=== PATIENT | male | born 1965 | race Caucasian/White ===

== ENCOUNTER → 2017-11-16 10:34 | Outpatient (CLI) | payer MEDICAID, SELFPAY ==
--- NOTE | 2017-11-16 10:41 | RAD_ITS ---
STUDY: X-RAY - THORACIC SPINE REASON FOR EXAM: Male, 52 years old. Pain TECHNIQUE: 7 view(s) of the thoracic spine were obtained. COMPARISON: None. FINDINGS: There is no evidence of fracture or dislocation in the thoracic spine. There are mild degenerative changes. There is no evidence of subluxation on flexion or extension. RAD/Thoracic Spine 3 Views IMPRESSION: No fracture or dislocation in the thoracic spine. Mild degenerative changes. Electronically Signed: David Aquino, at 20:07 EDT Tel , Service support ,
== END ==
PROVIDERS: Family Provider Family Medicine; PCP Family Medicine; Visit Provider Anesthesiology Pain Medicine
DX: M54.6 Pain in thoracic spine (principal)
CPT/HCPCS: 72072

== ENCOUNTER 2018-06-21 09:44 | Day surgery (SDC) | payer MEDICAID, SELFPAY ==
[2018-06-21 10:02] VITALS: BP 121/91; PULSE 71; RESP 16; TEMP 36.8; O2SAT 100; BMI 20.9
--- NOTE | 2018-06-21 11:10 | RAD_ITS ---
STUDY: RIGHT SI JOINT INJECTION. REASON FOR EXAM: Male, 52 years old. Right lower back pain. FLUOROSCOPY TIME (if supplied): (0:14) minutes/seconds. Single AP view was submitted. TECHNIQUE: Intraoperative fluoroscopic services provided for right SI joint injection. COMPARISON: None. FINDINGS: The spinal needle is seen overlying the right SI joint RAD/Fluoro Guided Needle Placement IMPRESSION: Fluoroscopic services provided for right SI joint injection. Electronically Signed: Bogdan Ludwig MD at 16:04 EST Tel [phone], Service support ,
[2018-06-21] MEDS: Bupivacaine 0.25% 30 ML Vial (11:11)
[2018-06-21] MEDS: MethylPREDNISolone Acetate 80 MG/ML Vial (11:11)
[2018-06-21 11:18] VITALS: BP 111/83; BP 121/91; PULSE 66; RESP 17; TEMP 36.6; O2SAT 97
[2018-06-21 11:23] VITALS: BP 111/81; BP 121/91; PULSE 68; RESP 16; O2SAT 97
--- NOTE | 2018-06-21 11:24 | PCM.OPRPT ---
Problem List (1) Sacrococcygeal disorders, not elsewhere classified Status: Chronic (2) Sacroiliitis, not elsewhere classified Status: Chronic Report of Operation Date of Procedure: 06/21/18 Pre-Operative Diagnosis: Sacroiliitis, sacroiliac joint dysfunction Post-Operative Diagnosis: Sacroiliitis, sacroiliac joint dysfunction Surgery/Procedure Performed:: Right sided sacroiliac joint steroid injection under fluoroscopic guidance Description of Surgical Findings:: PROCEDURE: Right-sided sacroiliac joint injection under fluoroscopic guidance PREOPERATIVE DIAGNOSIS: Sacroiliitis, sacroiliac joint dysfunction POSTOPERATIVE DIAGNOSIS: Sacroiliitis, sacroiliac joint dysfunction ANESTHESIA: MAC COMPLICATIONS: None BLOOD LOSS: Minimal PROCEDURE IN DETAIL: History and physical today was reviewed. Risks and benefits of the procedure were explained. The patient understood, agreed to our procedure, and informed consent was obtained. IV inserted per routine protocol. The patient was taken to the operating room, placed in a prone position with a pillow positioned underneath the abdomen. The right side of his lower back and buttock area was prepped and draped in a sterile fashion using iodine x3. Under fluoroscopy guidance, on AP view, the right SI joint was visualized the skin and subcutaneous tissue and size approximately 3 cc of 1% lidocaine using a 25-gauge regular needle under direct visualization with fluoroscopy at approximately 25 degree angle using a 22-gauge 3-1/2 inch spinal needle the needle was advanced via the skin the tip of the needle's maneuver and directed towards the inferior one third of the posterior SI joint once the tip of the needle was at the vicinity of the joint after negative aspiration for blood or CSF a total of 3 cc of contrast were injected to confirm correct placement of the needle as well as cephalocaudad spread the confirmation was obtained on AP as well as oblique view after repeated negative aspiration and confirmation a total of 4 cc of preservative-free 0.25% Marcaine with 40 mg of Depo-Medrol were injected in and around the SI joint. The needles were then removed intact. The patient experienced no signs or symptoms intrathecal, intravascular injection. The patient experienced no paraesthesia. The procedure was completed without any apparent difficult, any complication. The patient appeared to tolerate well. ASSESSMENT AND PLAN: This is a 52-year-old male with sacroiliitis, sacroiliac joint dysfunction status post right-sided sacroiliac joint steroid injection under fluoroscopic guidance. The patient will continue his current medications. The patient will follow in approximately 2 weeks for possible repeat of the procedure if indicated.
[2018-06-21 11:28] VITALS: BP 112/82; BP 121/91; PULSE 61; RESP 17; O2SAT 99
[2018-06-21 11:32] VITALS: BP 107/81; BP 121/91; PULSE 62; RESP 16; TEMP 36.6; O2SAT 94
[2018-06-21 11:49] VITALS: BP 121/91
--- OUTSIDE RECORDS SUMMARY | 2018-09-22 22:02 | XMS RPT_ITS ---
:1965 Author Organization OHIP Care Team Providers Name Role Phone ALISON CROFT) Referring Unavailable ALISON CROFT) Attending Unavailable ALISON CROFT) Referring Unavailable HEIKE CARVAJAL (GIL) Attending Unavailable ALISON CROFT) Referring Unavailable ALISON CROFT) Attending Unavailable Ryan Valdivia Attending Unavailable Ryan Valdivia Referring Unavailable John Croft Primary Care Unavailable Ryan Valdivia Attending Unavailable Ryan Valdivia Referring Unavailable John Croft Primary Care Unavailable PROBLEMS PROBLEMS DATE TYPE CONDITION / CODE ATTENDING STATUS SOURCE 03/17/2018 Active Encounter for NA Active [facility] general adult [facility] [place] medical Repository examination without abnormal findings / Z00.00(ICD-10) 03/17/2018 Active Emphysema, NA Active [facility] unspecified / [facility] [place] J43.9(ICD-10) Repository 12/18/2017 Unknown M54.6 - Pain in [facility], [facility] thoracic spine / [facility] M54.6(ICD-10) Hospital Repository PROCEDURES PROCEDURES No Procedure Records FoundRESULTS RESULTS OPERATIVE REPORT Observed: 06/21/2018 Status: F Source: [place] 11:37 [facility] [facility] Medical Records Department [address] [place] [address] [place] [address] Operative Report 06/21/18 1124 MR#: [id number] Acct: [id number] Name: LOLIS LUCAS Rep #: [id number] : 1965 52 From: Ryan Valdivia MD PCP: John Croft MD Status: [facility] Y Location: [place] [address] Problem List (1) Sacrococcygeal disorders, not elsewhere classified Status: Chronic (2) Sacroiliitis, not elsewhere classified Status: Chronic Report of Operation Date of Procedure: 06/21/18 Pre-Operative Diagnosis: Sacroiliitis, sacroiliac joint dysfunction Post-Operative Diagnosis: Sacroiliitis, sacroiliac joint dysfunction Surgery/Procedure Performed:: Right sided sacroiliac joint steroid injection under fluoroscopic guidance Description of Surgical Findings:: PROCEDURE: Right-sided sacroiliac joint injection under fluoroscopic guidance PREOPERATIVE DIAGNOSIS: Sacroiliitis, sacroiliac joint dysfunction POSTOPERATIVE DIAGNOSIS: Sacroiliitis, sacroiliac joint dysfunction ANESTHESIA: MAC COMPLICATIONS: None BLOOD LOSS: Minimal PROCEDURE IN DETAIL: History and physical today was reviewed. Risks and benefits of the procedure were explained. The patient understood, agreed to our procedure, and informed consent was obtained. IV inserted per routine protocol. The patient was taken to the operating room, placed in a prone position with a pillow positioned underneath the abdomen. The right side of his lower back and buttock area was prepped and draped in a sterile fashion using iodine x3. Under fluoroscopy guidance, on AP view, the right SI joint was visualized the skin and subcutaneous tissue and size approximately 3 cc of 1% lidocaine using a 25-gauge regular needle under direct visualization with fluoroscopy at approximately 25 degree angle using a 22-gauge 3-1/2 inch spinal needle the needle was advanced via the skin the tip of the needle's maneuver and directed towards the inferior one third of the posterior SI joint once the tip of the needle was at the vicinity of the joint after negative aspiration for blood or CSF a total of 3 cc of contrast were injected to confirm correct placement of the needle as well as cephalocaudad spread the confirmation was obtained on AP as well as oblique view after repeated negative aspiration and confirmation a total of 4 cc of preservative- free 0.25% Marcaine with 40 mg of Depo-Medrol were injected in and around the SI joint. The needles were then removed intact. The patient experienced no signs or symptoms intrathecal, intravascular injection. The patient experienced no paraesthesia. The procedure was completed without any apparent difficult, any complication. The patient appeared to tolerate well. ASSESSMENT AND PLAN: This is a 52-year-old male with sacroiliitis, sacroiliac joint dysfunction status post right-sided sacroiliac joint steroid injection under fluoroscopic guidance. The patient will continue his current medications. The patient will follow in approximately 2 weeks for possible repeat of the procedure if indicated. 06/21/18 1137 <Electronically signed by Ryan Valdivia MD> Date Ryan Valdivia MD CC: John Croft MD; Ryan Valdivia Signed FLUORO GUIDED NEEDLE Observed: 06/21/2018 Status: F Source: [place] 3:46 AM [facility] REPOSITORY [facility] Imaging Services [address] [place] [address] [place] [address] Fluoro Guided Needle Placement MR#: [id number] Acct: [id number] Name: LOLIS LUCAS Jr. Rep #: [id number] : 1965 M 52 From: Bogdan Ludwig MD PCP: John Croft MD Status: [facility] Study: Fluoro Guided Needle Placement Date of Exam: 06/21/18 Exam# [id number] Ordering Dr: Ryan Valdivia MD STUDY: RIGHT SI JOINT INJECTION. REASON FOR EXAM: Male, 52 years old. Right lower back pain. FLUOROSCOPY TIME (if supplied): (0:14) minutes/seconds. Single AP view was submitted. TECHNIQUE: Intraoperative fluoroscopic services provided for right SI joint injection. COMPARISON: None. FINDINGS: The spinal needle is seen overlying the right SI joint RAD/Fluoro Guided Needle Placement IMPRESSION: Fluoroscopic services provided for right SI joint injection. Electronically Signed: Bogdan Ludwig MD at 16:04 EST Tel [phone], Service support , CC: John Croft MD; Ryan Valdivia Sharebroker: Signed CBC AND DIFFERENTIAL Collected: 03/17/2018 Status: F Source: [place] 10:32 AM [facility] REPOSITORY TYPE CODE TESTS RESULT OUT OF REFERENCE UNITS RANGE LAB WBC 3.70-11.00 k/uL WBC High 11.78 LAB RBC 4.20-6.00 m/uL RBC 5.07 LAB HGB 13.0-17.0 g/dL Hemoglobin 16.0 LAB HCT 39.0-51.0 % Hematocrit 48.6 LAB MCV 80.0-100.0 fL MCV 95.9 LAB MCH 26.0-34.0 pG MCH 31.6 LAB MCHC 30.5-36.0 g/dL MCHC 32.9 LAB RDWCV 11.5-15.0 % RDW-CV 14.4 LAB PLTCT 150-400 k/uL Platelet Count 342 LAB MPV 9.0-12.7 fL MPV 10.3 LAB ANEUT % Neut% 74.5 LAB AANEUT 1.45-7.50 k/uL Abs Neut High 8.77 LAB ALYMP % Lymph% 17.6 LAB AALYMP 1.00-4.00 k/uL Abs Lymph 2.07 LAB AMONO % [place]% 7.1 LAB AAMONO <0.87 k/uL Abs [place] 0.84 LAB AEOS % Eosin% 0.4 LAB AAEOS <0.46 k/uL Abs Eosin 0.05 LAB ABASO % Baso% 0.4 LAB AABASO <0.11 k/uL Abs Baso 0.05 LAB AUNRBC 0 /100 WBC NRBCs 0.0 LAB ABNRBC <0.01 k/uL Absolute nRBC <0.01 LAB DTYP DTYPE Auto Diff Performed By: #### CBCDIF, CMP, LIPB #### [facility] [address] [place], [place] [address] COMP METABOLIC PANEL Collected: 03/17/2018 Status: F Source: [place] 10:32 AM [facility] REPOSITORY TYPE CODE TESTS RESULT OUT OF REFERENCE UNITS RANGE LAB TP 6.3-8.0 g/dL Protein, Total 7.3 LAB ALB 3.9-4.9 g/dL Albumin 4.5 LAB CA 8.5-10.2 mg/dL Calcium, Total 9.6 LAB TBIL 0.2-1.3 mg/dL Bilirubin, Total 0.2 LAB ALKP 36-108 U/L Alkaline Phosphatase 99 LAB AST 14-40 U/L AST 17 LAB GLU 74-99 mg/dL Low Glucose 69 Result Comment: The [place] Diabetes Association (ADA) provides guidance for cutoff values for fasting glucose and random glucose. The ADA defines fasting as no caloric intake for at least 8 hours. Fas ting plasma glucose results between 100 to 125 mg/dL indicate increased risk for diabetes (prediabetes). Fasting plasma glucose results greater than or equal to 126 mg/dL meet the criteria for diagnosis of diabetes. In the absence of unequivocal hyperglycemia, results should be confirmed by repeat testing. In a patient with classic symptoms of hyperglycemia or hyperglycemic crisis, random plasma glucose results greater than or equal to 200 mg/dL meet the criteria for diagnosis of diabetes. Reference: Standards of Medical Care in Diabetes 2016, [place] [employer] Association. Diabetes Care. 2016.39(Suppl 1). LAB BUN 9-24 mg/dL BUN 16 LAB CRET 0.73-1.22 mg/dL Creatinine 0.99 LAB NA 136-144 mmol/L Sodium 140 LAB K 3.7-5.1 mmol/L Potassium 4.4 LAB CL 97-105 mmol/L Chloride 102 LAB CO2 22-30 mmol/L CO2 23 LAB AGAP 9-18 mmol/L Anion Gap 15 LAB ALT 10-54 U/L ALT 13 LAB GFRAA eGFR- Amer. >60 LAB GFRNAA . eGFR-All Other Races >60 Result Comment: eGFR (Estimated GFR) Units of measure: mL/min/1.73 meters squared eGFR is derived from the reexpressed MDRD Study equation using the following parameters: serum creatinine, age, gender and race. The creatinine assay has been calibrated to be traceable to IDMS. An eGFR <60 mL/min/1.73m2 for >3 months is consistent with chronic kidney disease. Refer to KDOQI guidelines for clinical interpretation. In patients with unstable renal function, e.g. those with acute kidney injury, the eGFR may not accurately reflect actual GFR. Performed By: #### CBCDIF, CMP, LIPB #### [facility] [address] [place], [place] [address] LIPID PANEL, BASIC Collected: 03/17/2018 Status: F Source: [place] 10:32 AM [facility] [place] REPOSITORY TYPE CODE TESTS RESULT OUT OF REFERENCE UNITS RANGE LAB CHOL <200 mg/dL Cholesterol High 232 Result Comment: <200 mg/dL, Desirable 200-239 mg/dL, Borderline high >239 mg/dL, High LAB TRIGLY <150 mg/dL Triglyceride High 159 Result Comment: <150 mg/dL, Normal 150-199 mg/dL, Borderline high 200-499 mg/dL, High >499 mg/dL, Very high LAB HDL >39 mg/dL HDL-Cholesterol Low 32 Result Comment: 40-59 mg/dL, Acceptable >59 mg/dL, High: Negative risk factor for coronary heart disease <40 mg/dL, Low: Positive risk factor for coronary heart disease LAB LDL <100 mg/dL LDL-Cholesterol High 168 Result Comment: <100 mg/dL, Optimal 100-129 mg/dL, Near optimal/above optimal 130-159 mg/dL, Borderline high 160-189 mg/dL, High >189 mg/dL, Very high Secondary prevention optimal LDL Cholesterol levels are recommended to be < 70 mg/dL LAB NONHDL <130 mg/dL Non HDL High Cholesterol 200 Result Comment: <130 mg/dL, Optimal 130-159 mg/dL, Near optimal/above optimal 160-189 mg/dL, Borderline high 190-219 mg/dL, High >219 mg/dL, Very high Secondary prevention optimal non HDL Cholesterol levels are recommended to be < 100 mg/dL LAB FT hrs Fasting Time 12 LAB VLDL <30 mg/dL High VLDL Cholesterol 32 LAB TCHDL <5.10 High TC:HDL Ratio 7.25 LAB LDLHDL <2.54 High LDL:HDL Ratio 5.25 Result Comment: Reference: 1. National Cholesterol Education Program ATP III Guideline At-A-Glance Quick Desk Reference: National Heart, Lung, and Blood Dupo. National Institutes of Health. 2001: NIH Publication No. 01-3305. 2. An International Atherosclerosis Society position paper: global recommendations for the management of dyslipidemia: executive summary, Atherosclerosis. 2014: 232(2):410-413. Performed By: #### CBCDIF, CMP, LIPB #### [facility] [address] [place], [place] [address] URINALYSIS WITH Collected: 03/17/2018 Status: F Source: [place] MICROSCOPIC 10:32 AM [facility] REPOSITORY TYPE CODE TESTS RESULT OUT OF REFERENCE UNITS RANGE LAB UCOL Yellow Color Yellow LAB [facility] Clear Clarity Clear LAB UGLUC Negative mg/dL Glucose, Urine Negative LAB UBIL Negative Bilirubin, Urine Negative LAB UKET Negative Ketones, Urine Negative LAB USPG 1.005-1.030 Specific Christopher, Ur 1.009 LAB UHGB Negative Hemoglobin/Blood, Negative Ur LAB UPH 4.5-8.0 pH 6.0 LAB UPROT Negative mg/dL Protein, Urine Negative LAB UUROB Normal Urobilinogen Normal LAB UNITR Negative Nitrites Negative LAB ULKEST Negative Leukest Negative LAB UCOM Comments SEE COMMENT Result Comment: N/A LAB UMCOM Urine SEE Adan Comment COMMENT Result Comment: N/A LAB UWBC 0-5 /HPF WBC 0-5 LAB URBC 0-3 /HPF RBC 0-3 Performed By: #### UAWMIC #### [facility] [address] [place], [place] [address] PROGRESS Observed: 03/17/2018 Status: COMPLETED Source: [place] 9:48 AM [facility] REPOSITORY HNO ID: [id number] Author: Alison Sanders) [place] Service: (none) Author Type: Physician Type: Progress Notes Filed: 03/17/2018 10:23 AM Note Text: Chief Complaint Patient presents with: 6 Month Exam HPI Lolis Lucas is a 52 year old male who presents here today for 6 month follow up. Complaining today of right flank pain which started 1 week ago along with dark colored urine. Described as deep/sharp which is exacerbated with taking deep breath. Unchanged with movement or rest. Not treating with anything OTC. Has been taking baclofen OTC for DDD history which has not changed symptoms. Denies pain with urination, hematuria, urinary frequency/urgency, stopping/starting, straining to urinate, recent injury to area. Following up with Dr. Chester or history of DDD and next OV is 03/29. On nabumetone and baclofen which helps somewhat with pain. Also has TENs unit at home which he uses daily. Patient tried patches for smoking cessation which did not work for symptoms. Smoking 1/2 pack per day at this. Not interested in wellbutrin or chantix at this time. Emphysema symptoms have worsened since last OV on Spiriva and abluterol. States he is getting up nightly with coughing, more frequent SOB/wheezing, SOB with exertion, increased use of albuterol. Refusing flu vaccine today. Due for screening blood work. Last tetanus shot in the last 5 years. Did not get colonoscopy done in last 6 months as recommended. Would like FOBT instead. Past medical history, appointments, medications, allergies reviewed. Previous Medical History PAST MEDICAL HISTORY Diagnosis Date - DDD (degenerative disc disease), cervical - DDD (degenerative disc disease), lumbar seeing Dr. Chester - DDD (degenerative disc disease), thoracic - Emphysema lung (HCC) - Seasonal allergies - Tinnitus - Tobacco use Previous Surgical History PAST SURGICAL HISTORY Procedure Laterality Date - PAST SURGICAL HISTORY OF dental extraction, full - VASECTOMY 1988 Family History FAMILY HISTORY Problem Relation Age of Onset - Heart Father CABG x3 - Hyperlipidemia Father - Stroke Paternal Grandfather Patient Allergies ALLERGIES Allergen Reactions - Bactrim [Sulfametho* Anaphylaxis - Clindamycin Diarrhea, Vomiting - Wellbutrin [Bupropi* Hives Current Medications Current Outpatient Prescriptions on File Prior to Visit: baclofen (LIORESAL) 10 mg tablet Take 10 mg by mouth three times daily. cetirizine (ZYRTEC) 10 mg tablet Take 1 tablet by mouth once daily. tiotropium bromide (SPIRIVA RESPIMAT) 1.25 mcg/actuation mist Inhale 2 Puffs as instructed twice daily. albuterol HFA (VENTOLIN HFA) 90 mcg/actuation inhaler Inhale 2 Puffs as instructed every 4 hours as needed for Wheezing/Shortness of Breath. ibuprofen (MOTRIN) 600 mg tablet Take 1 tablet by mouth every 6 hours as needed. nicotine (NICODERM) 21 mg/24 hr Apply 1 Patch as directed every 24 hours. nicotine (NICODERM) 14 mg/24 hr Apply 1 Patch as directed every 24 hours. No smoking with patch. nicotine (NICODERM) 7 mg/24 hr Apply 1 Patch as directed every 24 hours. No current facility-administered medications on file prior to visit. Social History Social History Marital status: Spouse name: Years of education: Number of children: Occupational History Occupation Employer Comment unemployed Social History Main Topics Smoking status: Current Every Day Smoker Packs/day: 1.00 Years: 30.00 Types: Cigarettes Smokeless tobacco: Never Used Alcohol use: No Drug use: No Sexual activity: Not Currently Partners with: Female Review of Symptoms REVIEW OF SYSTEMS GENERAL: No weight loss, malaise or fevers RESPIRATORY: See HPI CARDIOVASCULAR: Negative for chest pain, leg swelling, hypertension, CHF or palpitations GI: No nausea, vomiting, or diarrhea SKIN: Negative for lesions, rash, and itching EXAM: BP 104/74 Pulse 78 Resp 20 Wt 66.7 kg (147 lb) BMI 22.35 kg/m? General Appearance: Well appearing, alert, in no acute distress, well-hydrated, well nourished.. Skin: Skin color, texture, turgor normal, no suspicious rashes or lesions. Lungs: Negative findings: normal respiratory rate and rhythm and chest symmetric with normal A/P diameter, Positive findings: scattered wheezing bilaterally. Heart: RRR without murmur, gallop, or rubs. No ectopy. Abdomen: Normal abdominal exam, Abdomen soft, non-tender. Bowel sounds normal. No masses, organomegaly. No CVA TTP. Extremities: No deformities, edema, skin discoloration, clubbing or cyanosis. Good capillary refill. . Back: no TTP over right flank, no swelling, rash, or bruising. Normal ROM. Health Maintenance List DTAP,TDAP,TD(1 - Tdap) due on 1985 LIPID SCREEN due on 2001 DIABETES SCREEN due on 2011 COLORECTAL CANCER SCREENING,SEE MODIFIER due on 2016 INFLUENZA(1) due on 03/06/2018 ONE PNEUMOVAX PRIOR TO AGE 66 Completed ASSESSMENT/PLAN: 1. General medical exam - ICD9: V70.9, ICD10: Z00.00 (primary diagnosis) - Recommended regular aerobic exercise. - Check CMP and fasting lipid panel - Vaccination(s) recommended today: Influenza - Follow up for annual exam in one year. - COMP METABOLIC PANEL - LIPID PANEL BASIC 2. Pulmonary emphysema, unspecified emphysema type (HCC) - ICD9: 492.8, ICD10: J43.9 Worsening symptoms. Add Breo, check PFTs. Consider referral to pulmonology if severe. - SPIROMETRY - BASELINE AND POST DILATOR - CBC + DIFF - FLUTICASONE 100 MCG-VILANTEROL 25 MCG/DOSE POWDER FOR INHALATION 3. Screening for colon cancer - ICD9: V76.51, ICD10: Z12.11 Refusing colonoscopy, will check FOBT instead. - FECAL OCCULT BLOOD TEST 4. Right flank pain - ICD9: 789.09, ICD10: R10.9 Obtain UA, If positive for blood will check CT abd/pelvis to rule out kidney stone. Suspect musculoskeletal vs radicular pain from DDD. - URINALYSIS WITH MICROSCOPIC 5. Dark urine - ICD9: 791.9, ICD10: R82.99 Check UA and CMP. Will call with results. Push PO fluids. - URINALYSIS WITH MICROSCOPIC 6. Tobacco use - ICD9: 305.1, ICD10: Z72.0 - Cessation encouraged. - Physiologic and physical aspects of tobacco addiction as well as strategies for quitting were discussed. - Counseling was given focusing on the harmful effects of this addiction especially given the patient's medical condition(s) which will be worsened because of the chemicals in tobacco. Alison Croft MD CNOV Observed: 03/17/2018 Status: COMPLETED Source: [place] 9:40 AM [facility] REPOSITORY Office Visit (FAMPWS) LANCELOLIS Alfred ([id number]) 1965 M Date Time Provider Department 03/17/18 9:40 AM ALISON CROFT) FAMPWS During your visit today, we recorded the following information about you: Pulse Respiration Blood pressure Weight 78/minute 20/minute 104/74 66.7 kg Alison Croft MD 03/17/2018 10:23 AM Signed Chief Complaint Patient presents with: 6 Month Exam HPI Lolis Lucas is a 52 year old male who presents here today for 6 month follow up. Complaining today of right flank pain which started 1 week ago along with dark colored urine. Described as deep/sharp which is exacerbated with taking deep breath. Unchanged with movement or rest. Not treating with anything OTC. Has been taking baclofen OTC for DDD history which has not changed symptoms. Denies pain with urination, hematuria, urinary frequency/urgency, stopping/starting, straining to urinate, recent injury to area. Following up with Dr. Chester or history of DDD and next OV is 03/29. On nabumetone and baclofen which helps somewhat with pain. Also has TENs unit at home which he uses daily. Patient tried patches for smoking cessation which did not work for symptoms. Smoking 1/2 pack per day at this. Not interested in wellbutrin or chantix at this time. Emphysema symptoms have worsened since last OV on Spiriva and abluterol. States he is getting up nightly with coughing, more frequent SOB/wheezing, SOB with exertion, increased use of albuterol. Refusing flu vaccine today. Due for screening blood work. Last tetanus shot in the last 5 years. Did not get colonoscopy done in last 6 months as recommended. Would like FOBT instead. Past medical history, appointments, medications, allergies reviewed. Previous Medical History PAST MEDICAL HISTORY Diagnosis Date - DDD (degenerative disc disease), cervical - DDD (degenerative disc disease), lumbar seeing Dr. Chester - DDD (degenerative disc disease), thoracic - Emphysema lung (HCC) - Seasonal allergies - Tinnitus - Tobacco use Previous Surgical History PAST SURGICAL HISTORY Procedure Laterality Date - PAST SURGICAL HISTORY OF dental extraction, full - VASECTOMY 1988 Family History FAMILY HISTORY Problem Relation Age of Onset - Heart Father CABG x3 - Hyperlipidemia Father - Stroke Paternal Grandfather Patient Allergies ALLERGIES Allergen Reactions - Bactrim [Sulfametho* Anaphylaxis - Clindamycin Diarrhea, Vomiting - Wellbutrin [Bupropi* Hives Current Medications Current Outpatient Prescriptions on File Prior to Visit: baclofen (LIORESAL) 10 mg tablet Take 10 mg by mouth three times daily. cetirizine (ZYRTEC) 10 mg tablet Take 1 tablet by mouth once daily. tiotropium bromide (SPIRIVA RESPIMAT) 1.25 mcg/actuation mist Inhale 2 Puffs as instructed twice daily. albuterol HFA (VENTOLIN HFA) 90 mcg/actuation inhaler Inhale 2 Puffs as instructed every 4 hours as needed for Wheezing/Shortness of Breath. ibuprofen (MOTRIN) 600 mg tablet Take 1 tablet by mouth every 6 hours as needed. nicotine (NICODERM) 21 mg/24 hr Apply 1 Patch as directed every 24 hours. nicotine (NICODERM) 14 mg/24 hr Apply 1 Patch as directed every 24 hours. No smoking with patch. nicotine (NICODERM) 7 mg/24 hr Apply 1 Patch as directed every 24 hours. No current facility-administered medications on file prior to visit. Social History Social History Marital status: Spouse name: Years of education: Number of children: Occupational History Occupation Employer Comment unemployed Social History Main Topics Smoking status: Current Every Day Smoker Packs/day: 1.00 Years: 30.00 Types: Cigarettes Smokeless tobacco: Never Used Alcohol use: No Drug use: No Sexual activity: Not Currently Partners with: Female Review of Symptoms REVIEW OF SYSTEMS GENERAL: No weight loss, malaise or fevers RESPIRATORY: See HPI CARDIOVASCULAR: Negative for chest pain, leg swelling, hypertension, CHF or palpitations GI: No nausea, vomiting, or diarrhea SKIN: Negative for lesions, rash, and itching EXAM: BP 104/74 Pulse 78 Resp 20 Wt 66.7 kg (147 lb) BMI 22.35 kg/m? General Appearance: Well appearing, alert, in no acute distress, well-hydrated, well nourished.. Skin: Skin color, texture, turgor normal, no suspicious rashes or lesions. Lungs: Negative findings: normal respiratory rate and rhythm and chest symmetric with normal A/P diameter, Positive findings: scattered wheezing bilaterally. Heart: RRR without murmur, gallop, or rubs. No ectopy. Abdomen: Normal abdominal exam, Abdomen soft, non-tender. Bowel sounds normal. No masses, organomegaly. No CVA TTP. Extremities: No deformities, edema, skin discoloration, clubbing or cyanosis. Good capillary refill. . Back: no TTP over right flank, no swelling, rash, or bruising. Normal ROM. Health Maintenance List DTAP,TDAP,TD(1 - Tdap) due on 1985 LIPID SCREEN due on 2001 DIABETES SCREEN due on 2011 COLORECTAL CANCER SCREENING,SEE MODIFIER due on 2016 INFLUENZA(1) due on 03/06/2018 ONE PNEUMOVAX PRIOR TO AGE 66 Completed ASSESSMENT/PLAN: 1. General medical exam - ICD9: V70.9, ICD10: Z00.00 (primary diagnosis) - Recommended regular aerobic exercise. - Check CMP and fasting lipid panel - Vaccination(s) recommended today: Influenza - Follow up for annual exam in one year. - COMP METABOLIC PANEL - LIPID PANEL BASIC 2. Pulmonary emphysema, unspecified emphysema type (HCC) - ICD9: 492.8, ICD10: J43.9 Worsening symptoms. Add Breo, check PFTs. Consider referral to pulmonology if severe. - SPIROMETRY - BASELINE AND POST DILATOR - CBC + DIFF - FLUTICASONE 100 MCG-VILANTEROL 25 MCG/DOSE POWDER FOR INHALATION 3. Screening for colon cancer - ICD9: V76.51, ICD10: Z12.11 Refusing colonoscopy, will check FOBT instead. - FECAL OCCULT BLOOD TEST 4. Right flank pain - ICD9: 789.09, ICD10: R10.9 Obtain UA, If positive for blood will check CT abd/pelvis to rule out kidney stone. Suspect musculoskeletal vs radicular pain from DDD. - URINALYSIS WITH MICROSCOPIC 5. Dark urine - ICD9: 791.9, ICD10: R82.99 Check UA and CMP. Will call with results. Push PO fluids. - URINALYSIS WITH MICROSCOPIC 6. Tobacco use - ICD9: 305.1, ICD10: Z72.0 - Cessation encouraged. - Physiologic and physical aspects of tobacco addiction as well as strategies for quitting were discussed. - Counseling was given focusing on the harmful effects of this addiction especially given the patient's medical condition(s) which will be worsened because of the chemicals in tobacco. Alison Croft MD Referring Provider: ALISON CROFT) [[id number]] Allergies As of Date: 03/17/2018 Noted Allergy Reaction BACTRIM (SULFAMETHOXAZOLE-TRIMETH*09/14/2017 10 - Anaphylaxis CLINDAMYCIN 09/14/2017 6 - Diarrhea 11 - Vomiting WELLBUTRIN (BUPROPION HCL) 09/14/2017 4 - Hives Date Reviewed: 03/17/2018 Reviewed by: Neil Castañeda Ma - Fully Assessed Reason for Visit: 6 Month Exam [189] Primary Visit Diagnosis:General medical exam [Z00.00] Other Visit Diagnoses:Pulmonary emphysema, unspecified emphysema type (HCC) [J43.9] Screening for colon cancer [Z12.11] Right flank pain [R10.9] Dark urine [R82.99] Tobacco use [Z72.0] Order(s):COMP METABOLIC PANEL [SQCMP] Order #: [id number] FUTURE LIPID PANEL BASIC [SQLIPB] Order #: [id number] FUTURE FECAL OCCULT BLOOD TEST [SQIFOBT] Order #: [id number] FUTURE URINALYSIS WITH MICROSCOPIC [SQUAWMIC] Order #: [id number] SPIROMETRY - BASELINE AND POST DILATOR [7603177] Order #: [id number] FUTURE CBC + DIFF [SQCBCDIF] Order #: [id number] FUTURE fluticasone-vilanterol (BREO ELLIPTA) 100-25 mcg/dose inhalerInhale 1 Inhalation as instructed once daily.Disp: 1 EachRfl: 5 Prescriptions as of 03/17/2018 Sig: NABUMETONE 500 MG TABLET Take 500 mg by mouth twice da* BACLOFEN 10 MG TABLET Take 10 mg by mouth three dominic* CETIRIZINE 10 MG TABLET Take 1 tablet by mouth once d* TIOTROPIUM BROMIDE 1.25 MCG/A* Inhale 2 Puffs as instructed * ALBUTEROL SULFATE HFA 90 MCG/* Inhale 2 Puffs as instructed * FLUTICASONE 100 MCG-VILANTERO* Inhale 1 Inhalation as instru* Problem List As Of Date 03/17/2018 Noted Resolved Tobacco use [Z72.0] Emphysema lung (HCC) [J43.9] Seasonal allergies [J30.2] Prescriptions ordered this encounter Disp Refills Start End FLUTICASONE 100 MCG-VILANTEROL 25 MC* 1 Ea* 5 03/17/2018 Route: INHALATION Sig: Inhale 1 Inhalation as instructed once daily. Medications Discontinued During This Encounter ibuprofen (MOTRIN) 600 mg tablet 90 t* 2 09/14/2017 03/17/2018 Route: ORAL Sig: Take 1 tablet by mouth every 6 hours as needed. Disc: Reason for discontinue is not on file. nicotine (NICODERM) 7 mg/24 hr 30 P* 0 09/14/2017 03/17/2018 Route: TRANSDERMAL Sig: Apply 1 Patch as directed every 24 hours. Disc: Reason for discontinue is not on file. nicotine (NICODERM) 14 mg/24 hr 30 P* 0 09/14/2017 03/17/2018 Route: TRANSDERMAL Sig: Apply 1 Patch as directed every 24 hours. No smoking with patch. Disc: Reason for discontinue is not on file. nicotine (NICODERM) 21 mg/24 hr 30 P* 0 09/14/2017 03/17/2018 Route: TRANSDERMAL Sig: Apply 1 Patch as directed every 24 hours. Disc: Reason for discontinue is not on file. Disposition: Return in about 6 months (around 09/14/2018). Follow-up and Disposition History Recorded Encounter Status:Closed by ALISON CROFT MD on 03/17/18 THORACIC SPINE 3 Observed: 11/16/2017 Status: F Source: [place] 10:45 AM [facility] [place] REPOSITORY [facility] Imaging Services [address] [place] [address] Thoracic Spine 3 Views MR#: [id number] Acct: [id number] Name: LOLIS LUCAS JrDavid Rep #: [id number] : 1965 M 52 From: David Aquino MD PCP: John Croft MD Status: REG CLI Study: Thoracic Spine 3 Views Date of Exam: 11/16/17 Exam# [id number] Ordering Dr: Ryan Valdivia MD STUDY: X-RAY - THORACIC SPINE REASON FOR EXAM: Male, 52 years old. Pain TECHNIQUE: 7 view(s) of the thoracic spine were obtained. COMPARISON: None. FINDINGS: There is no evidence of fracture or dislocation in the thoracic spine. There are mild degenerative changes. There is no evidence of subluxation on flexion or extension. RAD/Thoracic Spine 3 Views IMPRESSION: No fracture or dislocation in the thoracic spine. Mild degenerative changes. Electronically Signed: David Aquino, at 20:07 EDT Tel , Service support , CC: John Croft MD; Ryan Valdivia Sharebroker: Signed HISTORY PHYSICAL Observed: 10/28/2017 Status: COMPLETED Source: [place] 7:36 PM [facility] REPOSITORY HNO ID: [id number] Author: Joesfina Adams Service: (none) Author Type: Physician Type: HANDP Filed: 10/28/2017 7:37 PM Note Text: HISTORY AND PHYSICAL Lolis Lucas 1965 REFERRING PHYSICIAN: Alison Croft * CHIEF COMPLAINT: colon consult HPI: The patient is a 52 year old male referred for endoscopy. Lolis notes no history of colon complaints. He denies any change in bowel habits, weight changes, blood in stools, black tarry stools or abdominal pain. He denies any family history of colon cancer. The patient notes no history of upper GI complaints. Lolis has not undergone prior endoscopy. The patient is being seen by me today at the request of Dr. Croft for my opinion and advice regarding screening colonoscopy. Past medical history is significant for COPD, chronic back pain from degenerative disc disease. Follows with Dr. Croft and Dr. Chester. Denies a history of cardiac issues. Denies any problems with sedation in the past. PAST MEDICAL HISTORY - DDD (degenerative disc disease), cervical - DDD (degenerative disc disease), lumbar seeing Dr. Chester - DDD (degenerative disc disease), thoracic - Emphysema lung (HCC) - Seasonal allergies - Tinnitus - Tobacco use PAST SURGICAL HISTORY - PAST SURGICAL HISTORY OF dental extraction, full - VASECTOMY 1988 CURRENT MEDICATIONS baclofen (LIORESAL) 10 mg tablet Take 10 mg by mouth three times daily. nicotine (NICODERM) 21 mg/24 hr Apply 1 Patch as directed every 24 hours. nicotine (NICODERM) 14 mg/24 hr Apply 1 Patch as directed every 24 hours. No smoking with patch. nicotine (NICODERM) 7 mg/24 hr Apply 1 Patch as directed every 24 hours. cetirizine (ZYRTEC) 10 mg tablet Take 1 tablet by mouth once daily. tiotropium bromide (SPIRIVA RESPIMAT) 1.25 mcg/actuation mist Inhale 2 Puffs as instructed twice daily. albuterol HFA (VENTOLIN HFA) 90 mcg/actuation inhaler Inhale 2 Puffs as instructed every 4 hours as needed for Wheezing/Shortness of Breath. ibuprofen (MOTRIN) 600 mg tablet Take 1 tablet by mouth every 6 hours as needed. ALLERGIES: Bactrim [Sulfamethoxazole-Trimethoprim]; Clindamycin; Wellbutrin [Bupropion Hcl] PERSONAL HISTORY: Marital status: Spouse name: Years of education: Number of children: Occupational History Occupation Employer Comment unemployed Social History Main Topics Smoking status: Current Every Day Smoker Packs/day: 1.00 Years: 30.00 Types: Cigarettes Smokeless status: Never Used Alcohol use: No Drug use: No Sexual activity: Not Currently Partners with: Female FAMILY HISTORY - Heart Father CABG x3 - Hyperlipidemia Father - Stroke Paternal Grandfather REVIEW OF SYSTEMS: General: The patient NOTES fatigue, NOTES weight loss, NOTES weight gain, denies feeling hot, and denies feelings of cold. Eyes: The patient denies glaucoma, denies eye injury/surgery, does not wear glasses or contacts. Ear/Nose/Throat: The patient NOTES allergies, denies hayfever, denies ear infections, and denies bloody noses. Cardiovascular: The patient denies chest pain, denies heart disease, denies high blood pressure,denies cardiac stent, denies prior heart attack, denies irregular heart beat, denies high cholesterol, NOTES poor circulation, denies heart failure, other cardiac issues, denies claudication, NOTES cold feet, denies peripheral arterial stent. Respiratory: The patient denies tuberculosis, denies pneumonia, NOTES frequent cough, denies pulmonary embolism, NOTES shortness of breath, and denies coughing up blood. Gastrointestinal: The patient denies difficulty swallowing, denies acid reflux, denies ulcers, denies vomiting, denies jaundice/hepatitis, denies gallbladder problems, denies black or tarry stools, denies hemorrhoids, denies bleeding from rectum, denies diverticulitis, denies constipation, denies diarrhea, denies loss of stool control, and denies hernias. Kidney/Bladder: The patient denies kidney stones, denies urine infections, and denies bloody urine. Skin: The patient denies a history of skin cancer, denies bleeding/changing moles, and denies a history of skin rash. Neurologic: The patient denies a history of epilepsy/convulsions, denies headaches, NOTES head/spinal injuries, and denies stroke/TIA. Psychiatric: The patient denies psychiatric medications, denies depression, and denies voices, denies substance abuse. Endocrine: The patient denies thyroid disorders, denies diabetes, and denies hormonal problems. Hematologic: The patient denies a history of bruising, denies bleeding, and denies anemia, denies blood clots. Infections: The patient denies a history of measles and mumps, denies rheumatic fever, and denies sexually transmitted diseases. Musculoskeletal: The patient NOTES back pain/injury, NOTES back problems, NOTES sciatica, NOTES knee/foot trouble, NOTES arthritis, or denies gout. PHYSICAL EXAMINATION: General: The patient is 52 year old male, well nourished, well hydrated in no acute distress. The patient is oriented to time, place, and person. VITALS: Blood pressure 120/74, pulse 80, weight 70.8 kg (156 lb). Body mass index is 23.72 kg/(m2). HEENT: Normal cephalic, ataumatic, pupils are equally round, sclera are anicteric, mucous membranes are moist, oropharynx is clear. Neck has no masses, asymmetry or lymphadenopathy. Respiratory: Clear to auscultation and percussion. Normal respiratory excursion and pattern. Cardiac: Examination is regular rate and rhythm. Abdominal exam: Soft, nontender, with no palpable masses. No hepatosplenomegaly. No palpable hernias. Rectal exam: exam deferred Extremities: no clubbing, cyanosis or edema. No adenopathy. IMPRESSION: encounter for screening colonoscopy PLAN: We will plan for screening colonoscopy with one of the surgeons. We discussed the risks and benefits of the planned endoscopy. I have informed the patient that complications can occur including failure to complete the endoscopy and perforation. The patient had the opportunity to ask questions concerning the planned endoscopy. My staff has also explained the procedure to the patient in understandable terms and has given the patient printed material concerning the procedure. The patient freely consents to surgery. I plan to use golytely bowel preparation for endoscopy Diagnoses: (Z12.11) Encounter for screening for malignant neoplasm of colon (primary encounter diagnosis) Return to Clinic: The patient is instructed to follow-up with me 1 week post operatively. Heike Carvajal PA-C PROGRESS Observed: 09/24/2017 Status: COMPLETED Source: [place] 8:26 AM [facility] REPOSITORY O ID: [id number] Author: Heike Carvajal (Pa) Service: (none) Author Type: Physician Floor Tiling Professional Type: Progress Notes Filed: 09/24/2017 3:31 PM Note Text: HISTORY AND PHYSICAL Lolis Lucas 1965 REFERRING PHYSICIAN: Alison Croft * CHIEF COMPLAINT: colon consult HPI: The patient is a 52 year old male referred for endoscopy. Lolis notes no history of colon complaints. He denies any change in bowel habits, weight changes, blood in stools, black tarry stools or abdominal pain. He denies any family history of colon cancer. The patient notes no history of upper GI complaints. Lolis has not undergone prior endoscopy. The patient is being seen by me today at the request of Dr. Croft for my opinion and advice regarding screening colonoscopy. Past medical history is significant for COPD, chronic back pain from degenerative disc disease. Follows with Dr. Croft and Dr. Chester. Denies a history of cardiac issues. Denies any problems with sedation in the past. PAST MEDICAL HISTORY Diagnosis Date - DDD (degenerative disc disease), cervical - DDD (degenerative disc disease), lumbar seeing Dr. Chester - DDD (degenerative disc disease), thoracic - Emphysema lung (HCC) - Seasonal allergies - Tinnitus - Tobacco use PAST SURGICAL HISTORY Procedure Laterality Date - PAST SURGICAL HISTORY OF dental extraction, full - VASECTOMY 1988 Current Outpatient Prescriptions: baclofen (LIORESAL) 10 mg tablet Take 10 mg by mouth three times daily. nicotine (NICODERM) 21 mg/24 hr Apply 1 Patch as directed every 24 hours. nicotine (NICODERM) 14 mg/24 hr Apply 1 Patch as directed every 24 hours. No smoking with patch. nicotine (NICODERM) 7 mg/24 hr Apply 1 Patch as directed every 24 hours. cetirizine (ZYRTEC) 10 mg tablet Take 1 tablet by mouth once daily. tiotropium bromide (SPIRIVA RESPIMAT) 1.25 mcg/actuation mist Inhale 2 Puffs as instructed twice daily. albuterol HFA (VENTOLIN HFA) 90 mcg/actuation inhaler Inhale 2 Puffs as instructed every 4 hours as needed for Wheezing/Shortness of Breath. ibuprofen (MOTRIN) 600 mg tablet Take 1 tablet by mouth every 6 hours as needed. No current facility-administered medications for this visit. ALLERGIES: Bactrim [Sulfamethoxazole-Trimethoprim]; Clindamycin; Wellbutrin [Bupropion Hcl] PERSONAL HISTORY: Social History Marital status: Spouse name: Years of education: Number of children: Occupational History Occupation Employer Comment unemployed Social History Main Topics Smoking status: Current Every Day Smoker Packs/day: 1.00 Years: 30.00 Types: Cigarettes Smokeless status: Never Used Alcohol use: No Drug use: No Sexual activity: Not Currently Partners with: Female FAMILY HISTORY: FAMILY HISTORY Problem Relation Age of Onset - Heart Father CABG x3 - Hyperlipidemia Father - Stroke Paternal Grandfather REVIEW OF SYMPTOMS: The review of systems data was entered by the nurse and reviewed by me Nursing Notes: Evelina Card LPN 09/24/2017 8:38 AM Signed REVIEW OF SYSTEMS: General: The patient NOTES fatigue, NOTES weight loss, NOTES weight gain, denies feeling hot, and denies feelings of cold. Eyes: The patient denies glaucoma, denies eye injury/surgery, does not wear glasses or contacts. Ear/Nose/Throat: The patient NOTES allergies, denies hayfever, denies ear infections, and denies bloody noses. Cardiovascular: The patient denies chest pain, denies heart disease, denies high blood pressure,denies cardiac stent, denies prior heart attack, denies irregular heart beat, denies high cholesterol, NOTES poor circulation, denies heart failure, other cardiac issues, denies claudication, NOTES cold feet, denies peripheral arterial stent. Respiratory: The patient denies tuberculosis, denies pneumonia, NOTES frequent cough, denies pulmonary embolism, NOTES shortness of breath, and denies coughing up blood. Gastrointestinal: The patient denies difficulty swallowing, denies acid reflux, denies ulcers, denies vomiting, denies jaundice/hepatitis, denies gallbladder problems, denies black or tarry stools, denies hemorrhoids, denies bleeding from rectum, denies diverticulitis, denies constipation, denies diarrhea, denies loss of stool control, and denies hernias. Kidney/Bladder: The patient denies kidney stones, denies urine infections, and denies bloody urine. Skin: The patient denies a history of skin cancer, denies bleeding/changing moles, and denies a history of skin rash. Neurologic: The patient denies a history of epilepsy/convulsions, denies headaches, NOTES head/spinal injuries, and denies stroke/TIA. Psychiatric: The patient denies psychiatric medications, denies depression, and denies voices, denies substance abuse. Endocrine: The patient denies thyroid disorders, denies diabetes, and denies hormonal problems. Hematologic: The patient denies a history of bruising, denies bleeding, and denies anemia, denies blood clots. Infections: The patient denies a history of measles and mumps, denies rheumatic fever, and denies sexually transmitted diseases. Musculoskeletal: The patient NOTES back pain/injury, NOTES back problems, NOTES sciatica, NOTES knee/foot trouble, NOTES arthritis, or denies gout. When was patient's last Mammogram screening? N/A Last Colonoscopy: none Evelina Carvajal PA-C PHYSICAL EXAMINATION: General: The patient is 52 year old male, well nourished, well hydrated in no acute distress. The patient is oriented to time, place, and person. VITALS: Blood pressure 120/74, pulse 80, weight 70.8 kg (156 lb). Body mass index is 23.72 kg/(m2). HEENT: Normal cephalic, ataumatic, pupils are equally round, sclera are anicteric, mucous membranes are moist, oropharynx is clear. Neck has no masses, asymmetry or lymphadenopathy. Respiratory: Clear to auscultation and percussion. Normal respiratory excursion and pattern. Cardiac: Examination is regular rate and rhythm. Abdominal exam: Soft, nontender, with no palpable masses. No hepatosplenomegaly. No palpable hernias. Rectal exam: exam deferred Extremities: no clubbing, cyanosis or edema. No adenopathy. Other: LABORATORY VALUES: As Noted RADIOLOGIC STUDIES: As Noted Assessment IMPRESSION: encounter for screening colonoscopy PLAN: We will plan for screening colonoscopy with one of the surgeons. We discussed the risks and benefits of the planned endoscopy. I have informed the patient that complications can occur including failure to complete the endoscopy and perforation. The patient had the opportunity to ask questions concerning the planned endoscopy. My staff has also explained the procedure to the patient in understandable terms and has given the patient printed material concerning the procedure. The patient freely consents to surgery. I plan to use golytely bowel preparation for endoscopy Diagnoses: (Z12.11) Encounter for screening for malignant neoplasm of colon (primary encounter diagnosis) My findings have been communicated to Dr. Croft via shared medical record. This note will be forwarded to Dr. Alison Croft MD. Return to Clinic: The patient is instructed to follow-up with me 1 week post operatively. I spent 20 minutes in the visit, with more than 50% of the total [id number]-ec-[id number] time of the visit in counseling / coordination of care. Heike Carvajal PA-C CNOV Observed: 09/24/2017 Status: COMPLETED Source: [place] 8:15 AM [facility] REPOSITORY Office Visit (GENSWS) LOLIS LUCAS ([id number]) 1965 M Date Time Provider Department 09/24/17 8:15 AM HEIKE CARVAJAL (PA) During your visit today, we recorded the following information about you: Pulse Blood pressure Weight 80/minute 120/74 70.8 kg Heike Carvajal PA-C 09/24/2017 3:31 PM Signed HISTORY AND PHYSICAL Lolis Lucas 1965 REFERRING PHYSICIAN: Alison Croft * CHIEF COMPLAINT: colon consult HPI: The patient is a 52 year old male referred for endoscopy. Lolis notes no history of colon complaints. He denies any change in bowel habits, weight changes, blood in stools, black tarry stools or abdominal pain. He denies any family history of colon cancer. The patient notes no history of upper GI complaints. Lolis has not undergone prior endoscopy. The patient is being seen by me today at the request of Dr. Croft for my opinion and advice regarding screening colonoscopy. Past medical history is significant for COPD, chronic back pain from degenerative disc disease. Follows with Dr. Croft and Dr. Chester. Denies a history of cardiac issues. Denies any problems with sedation in the past. PAST MEDICAL HISTORY Diagnosis Date - DDD (degenerative disc disease), cervical - DDD (degenerative disc disease), lumbar seeing Dr. Chester - DDD (degenerative disc disease), thoracic - Emphysema lung (HCC) - Seasonal allergies - Tinnitus - Tobacco use PAST SURGICAL HISTORY Procedure Laterality Date - PAST SURGICAL HISTORY OF dental extraction, full - VASECTOMY 1988 Current Outpatient Prescriptions: baclofen (LIORESAL) 10 mg tablet Take 10 mg by mouth three times daily. nicotine (NICODERM) 21 mg/24 hr Apply 1 Patch as directed every 24 hours. nicotine (NICODERM) 14 mg/24 hr Apply 1 Patch as directed every 24 hours. No smoking with patch. nicotine (NICODERM) 7 mg/24 hr Apply 1 Patch as directed every 24 hours. cetirizine (ZYRTEC) 10 mg tablet Take 1 tablet by mouth once daily. tiotropium bromide (SPIRIVA RESPIMAT) 1.25 mcg/actuation mist Inhale 2 Puffs as instructed twice daily. albuterol HFA (VENTOLIN HFA) 90 mcg/actuation inhaler Inhale 2 Puffs as instructed every 4 hours as needed for Wheezing/Shortness of Breath. ibuprofen (MOTRIN) 600 mg tablet Take 1 tablet by mouth every 6 hours as needed. No current facility-administered medications for this visit. ALLERGIES: Bactrim [Sulfamethoxazole-Trimethoprim]; Clindamycin; Wellbutrin [Bupropion Hcl] PERSONAL HISTORY: Social History Marital status: Spouse name: Years of education: Number of children: Occupational History Occupation Employer Comment unemployed Social History Main Topics Smoking status: Current Every Day Smoker Packs/day: 1.00 Years: 30.00 Types: Cigarettes Smokeless status: Never Used Alcohol use: No Drug use: No Sexual activity: Not Currently Partners with: Female FAMILY HISTORY: FAMILY HISTORY Problem Relation Age of Onset - Heart Father CABG x3 - Hyperlipidemia Father - Stroke Paternal Grandfather REVIEW OF SYMPTOMS: The review of systems data was entered by the nurse and reviewed by nm Nursing Notes: Evelina Card LPN 09/24/2017 8:38 AM Signed REVIEW OF SYSTEMS: General: The patient NOTES fatigue, NOTES weight loss, NOTES weight gain, denies feeling hot, and denies feelings of cold. Eyes: The patient denies glaucoma, denies eye injury/surgery, does not wear glasses or contacts. Ear/Nose/Throat: The patient NOTES allergies, denies hayfever, denies ear infections, and denies bloody noses. Cardiovascular: The patient denies chest pain, denies heart disease, denies high blood pressure,denies cardiac stent, denies prior heart attack, denies irregular heart beat, denies high cholesterol, NOTES poor circulation, denies heart failure, other cardiac issues, denies claudication, NOTES cold feet, denies peripheral arterial stent. Respiratory: The patient denies tuberculosis, denies pneumonia, NOTES frequent cough, denies pulmonary embolism, NOTES shortness of breath, and denies coughing up blood. Gastrointestinal: The patient denies difficulty swallowing, denies acid reflux, denies ulcers, denies vomiting, denies jaundice/hepatitis, denies gallbladder problems, denies black or tarry stools, denies hemorrhoids, denies bleeding from rectum, denies diverticulitis, denies constipation, denies diarrhea, denies loss of stool control, and denies hernias. Kidney/Bladder: The patient denies kidney stones, denies urine infections, and denies bloody urine. Skin: The patient denies a history of skin cancer, denies bleeding/changing moles, and denies a history of skin rash. Neurologic: The patient denies a history of epilepsy/convulsions, denies headaches, NOTES head/spinal injuries, and denies stroke/TIA. Psychiatric: The patient denies psychiatric medications, denies depression, and denies voices, denies substance abuse. Endocrine: The patient denies thyroid disorders, denies diabetes, and denies hormonal problems. Hematologic: The patient denies a history of bruising, denies bleeding, and denies anemia, denies blood clots. Infections: The patient denies a history of measles and mumps, denies rheumatic fever, and denies sexually transmitted diseases. Musculoskeletal: The patient NOTES back pain/injury, NOTES back problems, NOTES sciatica, NOTES knee/foot trouble, NOTES arthritis, or denies gout. When was patient's last Mammogram screening? N/A Last Colonoscopy: none Evelina Carvajal PA-C PHYSICAL EXAMINATION: General: The patient is 52 year old male, well nourished, well hydrated in no acute distress. The patient is oriented to time, place, and person. VITALS: Blood pressure 120/74, pulse 80, weight 70.8 kg (156 lb). Body mass index is 23.72 kg/(m2). HEENT: Normal cephalic, ataumatic, pupils are equally round, sclera are anicteric, mucous membranes are moist, oropharynx is clear. Neck has no masses, asymmetry or lymphadenopathy. Respiratory: Clear to auscultation and percussion. Normal respiratory excursion and pattern. Cardiac: Examination is regular rate and rhythm. Abdominal exam: Soft, nontender, with no palpable masses. No hepatosplenomegaly. No palpable hernias. Rectal exam: exam deferred Extremities: no clubbing, cyanosis or edema. No adenopathy. Other: LABORATORY VALUES: As Noted RADIOLOGIC STUDIES: As Noted Assessment IMPRESSION: encounter for screening colonoscopy PLAN: We will plan for screening colonoscopy with one of the surgeons. We discussed the risks and benefits of the planned endoscopy. I have informed the patient that complications can occur including failure to complete the endoscopy and perforation. The patient had the opportunity to ask questions concerning the planned endoscopy. My staff has also explained the procedure to the patient in understandable terms and has given the patient printed material concerning the procedure. The patient freely consents to surgery. I plan to use golytely bowel preparation for endoscopy Diagnoses: (Z12.11) Encounter for screening for malignant neoplasm of colon (primary encounter diagnosis) My findings have been communicated to Dr. Croft via shared medical record. This note will be forwarded to Dr. Alison Croft MD. Return to Clinic: The patient is instructed to follow-up with me 1 week post operatively. I spent 20 minutes in the visit, with more than 50% of the total [id number] time of the visit in counseling / coordination of care. JUAN CARLOS Casillas LPN 09/24/2017 8:38 AM Signed REVIEW OF SYSTEMS: General: The patient NOTES fatigue, NOTES weight loss, NOTES weight gain, denies feeling hot, and denies feelings of cold. Eyes: The patient denies glaucoma, denies eye injury/surgery, does not wear glasses or contacts. Ear/Nose/Throat: The patient NOTES allergies, denies hayfever, denies ear infections, and denies bloody noses. Cardiovascular: The patient denies chest pain, denies heart disease, denies high blood pressure,denies cardiac stent, denies prior heart attack, denies irregular heart beat, denies high cholesterol, NOTES poor circulation, denies heart failure, other cardiac issues, denies claudication, NOTES cold feet, denies peripheral arterial stent. Respiratory: The patient denies tuberculosis, denies pneumonia, NOTES frequent cough, denies pulmonary embolism, NOTES shortness of breath, and denies coughing up blood. Gastrointestinal: The patient denies difficulty swallowing, denies acid reflux, denies ulcers, denies vomiting, denies jaundice/hepatitis, denies gallbladder problems, denies black or tarry stools, denies hemorrhoids, denies bleeding from rectum, denies diverticulitis, denies constipation, denies diarrhea, denies loss of stool control, and denies hernias. Kidney/Bladder: The patient denies kidney stones, denies urine infections, and denies bloody urine. Skin: The patient denies a history of skin cancer, denies bleeding/changing moles, and denies a history of skin rash. Neurologic: The patient denies a history of epilepsy/convulsions, denies headaches, NOTES head/spinal injuries, and denies stroke/TIA. Psychiatric: The patient denies psychiatric medications, denies depression, and denies voices, denies substance abuse. Endocrine: The patient denies thyroid disorders, denies diabetes, and denies hormonal problems. Hematologic: The patient denies a history of bruising, denies bleeding, and denies anemia, denies blood clots. Infections: The patient denies a history of measles and mumps, denies rheumatic fever, and denies sexually transmitted diseases. Musculoskeletal: The patient NOTES back pain/injury, NOTES back problems, NOTES sciatica, NOTES knee/foot trouble, NOTES arthritis, or denies gout. When was patient's last Mammogram screening? N/A Last Colonoscopy: none Evelina Card LPN Referring Provider: ALISON CROFT) [[id number]] Allergies As of Date: 09/24/2017 Noted Allergy Reaction BACTRIM (SULFAMETHOXAZOLE-TRIMETH*09/14/2017 10 - Anaphylaxis CLINDAMYCIN 09/14/2017 6 - Diarrhea 11 - Vomiting WELLBUTRIN (BUPROPION HCL) 09/14/2017 4 - Hives Date Reviewed: 09/24/2017 Reviewed by: Hieke Hoyt) Wei - Fully Assessed Reason for Visit: colon consult [Other] Primary Visit Diagnosis:Encounter for screening for malignant neoplasm of colon [Z12.11] Order(s):peg 3350-Electrolytes (GOLYTELY) 236-22.74-6.74 - 5.86 gram suspensionTake 4,000 mL by mouth one time only for 1 dose.Disp: 1 BottleRfl: 0 COLONOSCOPY SCRN NOT HIGH RISK [[id number]] Order #: [id number] FUTURE Prescriptions as of 09/24/2017 Sig: PEG 3350-ELECTROLYTES 236 GRA* Take 4,000 mL by mouth one ti* BACLOFEN 10 MG TABLET Take 10 mg by mouth three dominic* NICOTINE 21 MG/24 HR DAILY TR* Apply 1 Patch as directed jessica* NICOTINE 14 MG/24 HR DAILY TR* Apply 1 Patch as directed jessica* NICOTINE 7 MG/24 HR DAILY TRA* Apply 1 Patch as directed jessica* CETIRIZINE 10 MG TABLET Take 1 tablet by mouth once d* TIOTROPIUM BROMIDE 1.25 MCG/A* Inhale 2 Puffs as instructed * ALBUTEROL SULFATE HFA 90 MCG/* Inhale 2 Puffs as instructed * IBUPROFEN 600 MG TABLET Take 1 tablet by mouth every * Problem List As Of Date 09/24/2017 Noted Resolved Tobacco use [Z72.0] Emphysema lung (HCC) [J43.9] Seasonal allergies [J30.2] Visit Notes: >> Evelina Card LPN Saundra Sep 24, 2017 8:37 AM Status: Signed REVIEW OF SYSTEMS: General: The patient NOTES fatigue, NOTES weight loss, NOTES weight gain, denies feeling hot, and denies feelings of cold. Eyes: The patient denies glaucoma, denies eye injury/surgery, does not wear glasses or contacts. Ear/Nose/Throat: The patient NOTES allergies, denies hayfever, denies ear infections, and denies bloody noses. Cardiovascular: The patient denies chest pain, denies heart disease, denies high blood pressure,denies cardiac stent, denies prior heart attack, denies irregular heart beat, denies high cholesterol, NOTES poor circulation, denies heart failure, other cardiac issues, denies claudication, NOTES cold feet, denies peripheral arterial stent. Respiratory: The patient denies tuberculosis, denies pneumonia, NOTES frequent cough, denies pulmonary embolism, NOTES shortness of breath, and denies coughing up blood. Gastrointestinal: The patient denies difficulty swallowing, denies acid reflux, denies ulcers, denies vomiting, denies jaundice/hepatitis, denies gallbladder problems, denies black or tarry stools, denies hemorrhoids, denies bleeding from rectum, denies diverticulitis, denies constipation, denies diarrhea, denies loss of stool control, and denies hernias. Kidney/Bladder: The patient denies kidney stones, denies urine infections, and denies bloody urine. Skin: The patient denies a history of skin cancer, denies bleeding/changing moles, and denies a history of skin rash. Neurologic: The patient denies a history of epilepsy/convulsions, denies headaches, NOTES head/spinal injuries, and denies stroke/TIA. Psychiatric: The patient denies psychiatric medications, denies depression, and denies voices, denies substance abuse. Endocrine: The patient denies thyroid disorders, denies diabetes, and denies hormonal problems. Hematologic: The patient denies a history of bruising, denies bleeding, and denies anemia, denies blood clots. Infections: The patient denies a history of measles and mumps, denies rheumatic fever, and denies sexually transmitted diseases. Musculoskeletal: The patient NOTES back pain/injury, NOTES back problems, NOTES sciatica, NOTES knee/foot trouble, NOTES arthritis, or denies gout. When was patient's last Mammogram screening? N/A Last Colonoscopy: none Evelina Card LPN Prescriptions ordered this encounter Disp Refills Start End PEG 3350-ELECTROLYTES 236 GRAM-22.74* 1 Joey* 0 09/24/2017 09/24/2017 Route: ORAL Sig: Take 4,000 mL by mouth one time only for 1 dose. Follow-up and Disposition History Recorded Encounter Status:Closed by HEIKE CARVAJAL PA-C on 09/24/17 PROGRESS Observed: 09/14/2017 Status: COMPLETED Source: [place] 10:09 AM [facility] REPOSITORY [facility] ID: [id number] Author: Alison Sanders) Guerda Service: (none) Author Type: Physician Type: Progress Notes Filed: 09/14/2017 11:32 AM Note Text: Chief Complaint Patient presents with: Physical Establish Care HPI Lolis Lucas is a 52 year old male who presents here today for establish care visit. Patient was previously seeing Dr. Gray at [facility] and last OV was about 6 months ago. Blood work obtained at that time. Patient has emphysema and currently smokes 1 pack per day. Would like help with cessation. Discussed starting on patches daily which he is agreeable. Has had PFTs in the past. Taking inhalers as prescribed and they are working well for cough/wheeze/SOB, though he does get some cough with allergy symptoms. Not taking anything for seasonal allergies at this time. Due for colonoscopy. Refusing influenza and pneumococcal vaccination today. Past medical history, appointments, medications, allergies reviewed. Previous Medical History PAST MEDICAL HISTORY Diagnosis Date - DDD (degenerative disc disease), cervical - DDD (degenerative disc disease), lumbar - DDD (degenerative disc disease), thoracic - Emphysema lung (HCC) - Tobacco use Previous Surgical History No past surgical history on file. Family History No family history on file. Patient Allergies ALLERGIES Allergen Reactions - Bactrim [Sulfametho* Anaphylaxis - Clindamycin Diarrhea, Vomiting Current Medications No current outpatient prescriptions on file prior to visit. No current facility-administered medications on file prior to visit. Social History Social History Marital status: Spouse name: Years of education: Number of children: Social History Main Topics Smoking status: Current Every Day Smoker Packs/day: 1.00 Years: 30.00 Types: Cigarettes Smokeless status: Never Used Alcohol use: No Drug use: No Review of Symptoms REVIEW OF SYSTEMS GENERAL: No weight loss, malaise or fevers HEENT: Negative for frequent or significant headaches, No changes in hearing or vision, no nose bleeds or other nasal problems NECK: Negative for lumps, goiter, pain and significant neck swelling RESPIRATORY: Chronic Cough; productive with clear sputum, Shortness of breath CARDIOVASCULAR: Negative for chest pain, leg swelling, hypertension, CHF or palpitations GI: No nausea, vomiting, or diarrhea : No difficulty urinating, nocturia > 1 time per night or hematuria MUSCULOSKELETAL: Chronic back pain, seeing Dr. Chester SKIN: Negative for lesions, rash, and itching EXAM: BP 122/90 Pulse 80 Resp 14 Ht 172.7 cm (5' 8) Wt 67.6 kg (149 lb) BMI 22.66 kg/m2 Skin: Skin color, texture, turgor normal, no suspicious rashes or lesions. Head: Normocephalic, no masses, lesions, tenderness or abnormalities. Neck: Supple, no adenopathy; thyroid symmetric, normal size, no bruits. Lungs: Lungs clear to auscultation. No wheezing, rhonchi, rales. Heart: RRR without murmur, gallop, or rubs. No ectopy. Abdomen: Normal abdominal exam, Abdomen soft, non-tender. Bowel sounds normal. No masses, organomegaly. Extremities: No deformities, edema, skin discoloration, clubbing or cyanosis. Good capillary refill. . Health Maintenance List ONE PNEUMOVAX PRIOR TO AGE 66 due on 1985 LIPID SCREEN due on 2001 DIABETES SCREEN due on 2011 PROSTATE CANCER SCREENING DISCUSSION due on 2016 COLORECTAL CANCER SCREENING,SEE MODIFIER due on 2016 INFLUENZA(1) due on 03/06/2017 TETANUS due on 04/11/2023 ASSESSMENT/PLAN: 1. Pulmonary emphysema, unspecified emphysema type (HCC) - ICD9: 492.8, ICD10: J43.9 (primary diagnosis) Continue aerosols, work on smoking cessation, will obtain PFTs from previous PCP office. 2. Tobacco use - ICD9: 305.1, ICD10: Z72.0 - Cessation encouraged. - Physiologic and physical aspects of tobacco addiction as well as strategies for quitting were discussed. - Counseling was given focusing on the harmful effects of this addiction especially given the patient's medical condition(s) which will be worsened because of the chemicals in tobacco. - Prescription for nicoderm given - NICOTINE 21 MG/24 HR DAILY TRANSDERMAL PATCH - NICOTINE 14 MG/24 HR DAILY TRANSDERMAL PATCH - NICOTINE 7 MG/24 HR DAILY TRANSDERMAL PATCH 3. Screening for colon cancer - ICD9: V76.51, ICD10: Z12.11 - CONSULT TO GENERAL SURGERY 4. Seasonal allergic rhinitis, unspecified trigger - ICD9: 477.9, ICD10: J30.2 Will start on zyrtec daily for symptoms. Alison Croft MD CNOV Observed: 09/14/2017 Status: COMPLETED Source: [place] 10:00 AM [facility] REPOSITORY Office Visit (FAMPWS) LOLIS LUCAS ([id number]) 1965 M Date Time Provider Department 09/14/17 10:00 AM ALISON CROFT) RASHADWS During your visit today, we recorded the following information about you: Pulse Respiration Blood pressure Weight 80/minute 14/minute 122/90 67.6 kg Height 1.727 m Alison Croft MD 09/14/2017 11:32 AM Signed Chief Complaint Patient presents with: Physical Establish Care HPI Lolis Lucas is a 52 year old male who presents here today for establish care visit. Patient was previously seeing Dr. Gray at [facility] and last OV was about 6 months ago. Blood work obtained at that time. Patient has emphysema and currently smokes 1 pack per day. Would like help with cessation. Discussed starting on patches daily which he is agreeable. Has had PFTs in the past. Taking inhalers as prescribed and they are working well for cough/wheeze/SOB, though he does get some cough with allergy symptoms. Not taking anything for seasonal allergies at this time. Due for colonoscopy. Refusing influenza and pneumococcal vaccination today. Past medical history, appointments, medications, allergies reviewed. Previous Medical History PAST MEDICAL HISTORY Diagnosis Date - DDD (degenerative disc disease), cervical - DDD (degenerative disc disease), lumbar - DDD (degenerative disc disease), thoracic - Emphysema lung (HCC) - Tobacco use Previous Surgical History No past surgical history on file. Family History No family history on file. Patient Allergies ALLERGIES Allergen Reactions - Bactrim [Sulfametho* Anaphylaxis - Clindamycin Diarrhea, Vomiting Current Medications No current outpatient prescriptions on file prior to visit. No current facility-administered medications on file prior to visit. Social History Social History Marital status: Spouse name: Years of education: Number of children: Social History Main Topics Smoking status: Current Every Day Smoker Packs/day: 1.00 Years: 30.00 Types: Cigarettes Smokeless status: Never Used Alcohol use: No Drug use: No Review of Symptoms REVIEW OF SYSTEMS GENERAL: No weight loss, malaise or fevers HEENT: Negative for frequent or significant headaches, No changes in hearing or vision, no nose bleeds or other nasal problems NECK: Negative for lumps, goiter, pain and significant neck swelling RESPIRATORY: Chronic Cough; productive with clear sputum, Shortness of breath CARDIOVASCULAR: Negative for chest pain, leg swelling, hypertension, CHF or palpitations GI: No nausea, vomiting, or diarrhea : No difficulty urinating, nocturia ANDgt; 1 time per night or hematuria MUSCULOSKELETAL: Chronic back pain, seeing Dr. Chester SKIN: Negative for lesions, rash, and itching EXAM: BP 122/90 Pulse 80 Resp 14 Ht 172.7 cm (5' 8ANDquot;) Wt 67.6 kg (149 lb) BMI 22.66 kg/m2 Skin: Skin color, texture, turgor normal, no suspicious rashes or lesions. Head: Normocephalic, no masses, lesions, tenderness or abnormalities. Neck: Supple, no adenopathy; thyroid symmetric, normal size, no bruits. Lungs: Lungs clear to auscultation. No wheezing, rhonchi, rales. Heart: RRR without murmur, gallop, or rubs. No ectopy. Abdomen: Normal abdominal exam, Abdomen soft, non-tender. Bowel sounds normal. No masses, organomegaly. Extremities: No deformities, edema, skin discoloration, clubbing or cyanosis. Good capillary refill. . Health Maintenance List ONE PNEUMOVAX PRIOR TO AGE 66 due on 1985 LIPID SCREEN due on 2001 DIABETES SCREEN due on 2011 PROSTATE CANCER SCREENING DISCUSSION due on 2016 COLORECTAL CANCER SCREENING,SEE MODIFIER due on 2016 INFLUENZA(1) due on 03/06/2017 TETANUS due on 04/11/2023 ASSESSMENT/PLAN: 1. Pulmonary emphysema, unspecified emphysema type (HCC) - ICD9: 492.8, ICD10: J43.9 (primary diagnosis) Continue aerosols, work on smoking cessation, will obtain PFTs from previous PCP office. 2. Tobacco use - ICD9: 305.1, ICD10: Z72.0 - Cessation encouraged. - Physiologic and physical aspects of tobacco addiction as well as strategies for quitting were discussed. - Counseling was given focusing on the harmful effects of this addiction especially given the patient's medical condition(s) which will be worsened because of the chemicals in tobacco. - Prescription for nicoderm given - NICOTINE 21 MG/24 HR DAILY TRANSDERMAL PATCH - NICOTINE 14 MG/24 HR DAILY TRANSDERMAL PATCH - NICOTINE 7 MG/24 HR DAILY TRANSDERMAL PATCH 3. Screening for colon cancer - ICD9: V76.51, ICD10: Z12.11 - CONSULT TO GENERAL SURGERY 4. Seasonal allergic rhinitis, unspecified trigger - ICD9: 477.9, ICD10: J30.2 Will start on zyrtec daily for symptoms. Alison Croft MD Referring Provider: NO PCP [[id number]] Allergies As of Date: 09/14/2017 Noted Allergy Reaction BACTRIM (SULFAMETHOXAZOLE-TRIMETH*09/14/2017 10 - Anaphylaxis CLINDAMYCIN 09/14/2017 6 - Diarrhea 11 - Vomiting WELLBUTRIN (BUPROPION HCL) 09/14/2017 4 - Hives Date Reviewed: 09/14/2017 Reviewed by: Alison Sanders) Guerda - Fully Assessed Reason for Visit: Physical [83] Establish Care [42] Primary Visit Diagnosis:Pulmonary emphysema, unspecified emphysema type (HCC) [J43.9] Other Visit Diagnoses:Tobacco use [Z72.0] Screening for colon cancer [Z12.11] Seasonal allergic rhinitis, unspecified trigger [J30.2] Order(s):nicotine (NICODERM) 21 mg/24 hrApply 1 Patch as directed every 24 hours.Disp: 30 PatchRfl: 0 nicotine (NICODERM) 14 mg/24 hrApply 1 Patch as directed every 24 hours. No smoking with patch.Disp: 30 PatchRfl: 0 nicotine (NICODERM) 7 mg/24 hrApply 1 Patch as directed every 24 hours.Disp: 30 PatchRfl: 0 CONSULT TO GENERAL SURGERY [9011] Order #: [id number]: 1 cetirizine (ZYRTEC) 10 mg tabletTake 1 tablet by mouth once daily.Disp: 30 tabletRfl: 5 tiotropium bromide (SPIRIVA RESPIMAT) 1.25 mcg/actuation mistInhale 2 Puffs as instructed twice daily.Disp: 1 InhalerRfl: 5 albuterol HFA (VENTOLIN HFA) 90 mcg/actuation inhalerInhale 2 Puffs as instructed every 4 hours as needed for Wheezing/Shortness of Breath.Disp: 1 InhalerRfl: 5 ibuprofen (MOTRIN) 600 mg tabletTake 1 tablet by mouth every 6 hours as needed.Disp: 90 tabletRfl: 2 Prescriptions as of 09/14/2017 Sig: BACLOFEN 10 MG TABLET Take 10 mg by mouth three dominic* TIOTROPIUM BROMIDE 1.25 MCG/A* Inhale 2 Puffs as instructed * ALBUTEROL SULFATE HFA 90 MCG/* Inhale 2 Puffs as instructed * IBUPROFEN 600 MG TABLET Take 1 tablet by mouth every * NICOTINE 21 MG/24 HR DAILY TR* Apply 1 Patch as directed jessica* NICOTINE 14 MG/24 HR DAILY TR* Apply 1 Patch as directed jessica* NICOTINE 7 MG/24 HR DAILY TRA* Apply 1 Patch as directed jessica* CETIRIZINE 10 MG TABLET Take 1 tablet by mouth once d* Problem List As Of Date 09/14/2017 Noted Resolved Tobacco use [Z72.0] Emphysema lung (HCC) [J43.9] Seasonal allergies [J30.2] Prescriptions ordered this encounter Disp Refills Start End NICOTINE 21 MG/24 HR DAILY TRANSDERM* 30 P* 0 09/14/2017 Route: TRANSDERM. Sig: Apply 1 Patch as directed every 24 hours. NICOTINE 14 MG/24 HR DAILY TRANSDERM* 30 P* 0 09/14/2017 Route: TRANSDERM. Sig: Apply 1 Patch as directed every 24 hours. No smoking with patch. NICOTINE 7 MG/24 HR DAILY TRANSDERMA* 30 P* 0 09/14/2017 Route: TRANSDERM. Sig: Apply 1 Patch as directed every 24 hours. CETIRIZINE 10 MG TABLET 30 t* 5 09/14/2017 Route: ORAL Sig: Take 1 tablet by mouth once daily. TIOTROPIUM BROMIDE 1.25 MCG/ACTUATIO* 1 In* 5 09/14/2017 Route: INHALATION Sig: Inhale 2 Puffs as instructed twice daily. ALBUTEROL SULFATE HFA 90 MCG/ACTUATI* 1 In* 5 09/14/2017 Route: INHALATION Sig: Inhale 2 Puffs as instructed every 4 hours as needed for Wheezing/Shortness of Breath. IBUPROFEN 600 MG TABLET 90 t* 2 09/14/2017 Route: ORAL Sig: Take 1 tablet by mouth every 6 hours as needed. Medications Discontinued During This Encounter tiotropium bromide (SPIRIVA RESPIMAT* 09/14/2017 Class: Historical Med Route: INHALATION Sig: Inhale as instructed. Disc: Reason for discontinue is not on file. albuterol HFA (VENTOLIN HFA) 90 mcg/* 09/14/2017 Class: Historical Med Route: INHALATION Sig: Inhale 2 Puffs as instructed. Disc: Reason for discontinue is not on file. ibuprofen (MOTRIN) 600 mg tablet 09/14/2017 Class: Historical Med Route: ORAL Sig: Take 600 mg by mouth every 6 hours as needed. Disc: Reason for discontinue is not on file. Disposition: Return in about 6 months (around 03/17/2018). Follow-up and Disposition History Recorded Encounter Status:Closed by ALISON CROFT MD on 09/14/17 ALLERGIES ALLERGIES DATE TYPE / NAME / CODE REACTION SEVERITY SOURCE CODE 06/18/2018 Drug Sulfa Anaphylaxis Unknown [place] [facility]/41 (Sulfonamide [facility] 5748449(SN Antibiotics)/F[address] [facility] [address] [facility]) 957046(RXNORM) Repository 09/14/2017 DRUG/40474 SULFAMETHOXAZOLE- ANAPHYLAXIS [facility] 1003(SNOME TRIMETHOPRIM [address] [place] D CT) Repository 09/14/2017 DRUG CLINDAMYCIN DIARRHEA [address] [id number](SN Repository OMED CT) 09/14/2017 DRUG BUPROPION HCL HIVES [address] [id number](SN Repository OMED CT) ENCOUNTERS ENCOUNTERS ADMIT/DISCHARGE ACCOUNT ADMITTING ENCOUNTER LOCATION SOURCE NUMBER CLASS 06/21/2018/06/21/[id number] ing:SDCRoom: Repository AC11 03/17/2018/03/17/20 [id number] Ambulatory [address] Repository 03/17/2018/03/18/20 [id number] Ambulatory [address] Repository 11/16/2017 [id number] [facility] ing:RAD Repository 09/24/2017/09/26/[id number] Repository 09/14/2017/09/16/[id number] Repository PAYERS PAYERS ENCOUNTER GUARANTOR PAYER SUBSCRIBER SOURCE 06/21/2018 LOLIS LUCAS Primary LOLIS Ledesma Jr.[address] TR Insurance:PIPPA [place] Number: [id number] [address]Itu: [id number] Repository Date:2018-06-14P O () [address]ATTN: [place] [address]ZT: 06/21/2018 Secondary NOT GIVENUNK Callie Insurance:SELF PAY [facility] Number: Effective Repository Date:2018-06-14 11/16/2017 LOLIS LUCAS Primary LOLIS Ledesma Jr.[address] TR Insurance:[facility] [place]: [address] Number: [id number] [address]Xcu: [id number] Repository Date:2017-11-16P O () [address]ATTN: [place] [address]LS: 11/16/2017 Secondary NOT GIVENUNK Callie Insurance:SELF PAY [facility] Number: Effective Repository Date:2017-11-16
== END 2018-06-21 11:52 | disposition home or self-care (01) ==
LOC: SDC 09:45 → AC 09:46
PROVIDERS: Family Provider Family Medicine; PCP Family Medicine; Referring Provider Anesthesiology Pain Medicine; Visit Provider Anesthesiology Pain Medicine
PROC: 3E0U3GC Introduction of Other Therapeutic Substance into Joints, Percutaneous Approach (ICD-10-PCS; CPT 27096; principal; 2018-06-21 11:05)
DX: M46.1 Sacroiliitis, not elsewhere classified (principal); M53.3 Sacrococcygeal disorders, not elsewhere classified; M48.061 Spinal stenosis, lumbar region without neurogenic claudication; M47.26 Other spondylosis with radiculopathy, lumbar region; M46.96 Unspecified inflammatory spondylopathy, lumbar region; M43.16 Spondylolisthesis, lumbar region; M47.27 Other spondylosis with radiculopathy, lumbosacral region; M51.37 Other intervertebral disc degeneration, lumbosacral region; M51.26 Other intervertebral disc displacement, lumbar region; M51.34 Other intervertebral disc degeneration, thoracic region; M50.30 Other cervical disc degeneration, unspecified cervical region; M47.22 Other spondylosis with radiculopathy, cervical region; M43.12 Spondylolisthesis, cervical region; M79.7 Fibromyalgia; J43.9 Emphysema, unspecified; J45.909 Unspecified asthma, uncomplicated; E78.00 Pure hypercholesterolemia, unspecified; M19.90 Unspecified osteoarthritis, unspecified site; G47.00 Insomnia, unspecified; K21.9 Gastro-esophageal reflux disease without esophagitis; R53.83 Other fatigue; F17.210 Nicotine dependence, cigarettes, uncomplicated; Z79.891 Long term (current) use of opiate analgesic; Z79.52 Long term (current) use of systemic steroids; Z79.899 Other long term (current) drug therapy
CPT/HCPCS: 01160; 27096; 76000; 77002; J7120

== ENCOUNTER → 2018-09-29 16:09 | Outpatient (CLI) | payer MEDICAID, SELFPAY ==
--- NOTE | 2018-09-29 16:25 | MRI_ITS ---
STUDY: MRI THORACIC SPINE WITHOUT CONTRAST REASON FOR EXAM: Male, 53 years old. Fall. Left arm pain. TECHNIQUE: Standardized fat and water weighted pulse sequences were obtained in the sagittal and axial planes. COMPARISON: X-ray dated November 16, 2017. FINDINGS: Slightly exaggerated thoracic kyphosis. No significant scoliosis. No acute fracture lines. No dislocation. No cortical destruction. No spondylolisthesis. No abnormal cord signal. Conus medullaris terminates normally at the L1 level. T8-9 central disc protrusion with mild ventral cord flattening (axial image 24 series 3). T9-10 disc bulge, asymmetric to the right, without ventral cord flattening (axial image 20 series 3). T1-2, T2-3, T3-4, T4-5, T5-6, T6-7, T7-8, T9-10, T10-11, T11-12: No disc herniation. No significant central canal narrowing. No significant neural foraminal narrowing. Minimal endplate spondylosis. No significant intervertebral disc height loss. Normal visualized upper abdomen. Normal visualized mediastinum. Normal visualized soft tissue structures. MRI/Spine Thoracic (Routine) IMPRESSION: No abnormal cord signal T8-9 central disc protrusion with mild ventral cord flattening T9-10 disc bulge, asymmetric to the right, without ventral cord flattening Slightly exaggerated thoracic kyphosis Electronically Signed: Oneil Leone DO at 14:46 EDT Tel , Service support ,
== END ==
PROVIDERS: Family Provider Family Medicine; PCP Family Medicine; Referring Provider Anesthesiology Pain Medicine; Visit Provider Anesthesiology Pain Medicine
DX: M51.36 Other intervertebral disc degeneration, lumbar region (principal)
CPT/HCPCS: 72146

== ENCOUNTER → 2019-02-25 10:31 | Outpatient (CLI) | payer MEDICAID, SELFPAY ==
--- NOTE | 2019-02-25 10:37 | RAD_ITS ---
STUDY: X-RAY - CERVICAL SPINE REASON FOR EXAM: Male, 53 years old. Chronic neck pain TECHNIQUE: 5 view(s) of the cervical spine were obtained. COMPARISON: None FINDINGS: There is mild grade 1 anterolisthesis of C4 on C5 and C5 on C6 seen. Straightening of normal cervical lordotic curvature. Multilevel facet arthrosis. Uncovertebral joint degenerative changes also noted with neural foraminal narrowing. The dens appears intact. Visualized occipital condyles are within normal limits. No apical pneumothorax. Visualized ribs appear intact. IMPRESSION: Cervical spondylotic changes with multilevel neural foraminal narrowing. Please consider MRI examination of the cervical spine for complete assessment Electronically Signed: Shamar Capellan, at 23:24 EDT Tel , Service support , RAD/Cerv Spine 4 or 5 Views
== END ==
PROVIDERS: Family Provider Family Medicine; PCP Family Medicine; Referring Provider Nurse Practitioner Family; Visit Provider Nurse Practitioner Family
DX: M47.22 Other spondylosis with radiculopathy, cervical region (principal); M50.30 Other cervical disc degeneration, unspecified cervical region
CPT/HCPCS: 72050

== ENCOUNTER 2019-05-23 08:33 | Day surgery (SDC) | payer MEDICAID, SELFPAY ==
[2019-05-23 08:53] VITALS: BP 120/94; PULSE 82; RESP 16; TEMP 37.2; O2SAT 99; BMI 21.2
[2019-05-23] MEDS: Lactated Ringers 1,000 ML 100 ML IV (09:07)
[2019-05-23] MEDS: Bupivacaine 0.25% 30 ML Vial (10:31)
[2019-05-23] MEDS: MethylPREDNISolone Acetate 80 MG/ML Vial (10:31)
--- NOTE | 2019-05-23 10:35 | RAD_ITS ---
STUDY: BILATERAL SACROILIAC JOINT INJECTIONS. REASON FOR EXAM: Male, 53 years old. Low back pain. FLUOROSCOPY TIME (if supplied): ( 13.1 seconds ) minutes/seconds. 2 images were obtained. TECHNIQUE: The spinal needle is seen within the right and left sacroiliac joints. COMPARISON: None. FINDINGS: Spinal needle seen in the inferior aspect of the right and left sacroiliac joint RAD/S-I Jts 3 or More Views IMPRESSION: Fluoroscopic services provided for bilateral sacroiliac joint injections. Electronically Signed: Bogdan uLdwig, at 9:37 EST , Service support ,
[2019-05-23 10:43] VITALS: BP 120/94; BP 94/58; PULSE 71; RESP 16; TEMP 36.6; O2SAT 96
[2019-05-23 10:50] VITALS: BP 120/94; BP 94/58; PULSE 63; RESP 16; O2SAT 96
[2019-05-23 10:55] VITALS: BP 120/94; BP 92/58; PULSE 57; RESP 16; O2SAT 97
[2019-05-23 11:00] VITALS: BP 120/94; BP 93/54; PULSE 63; RESP 16; TEMP 37; O2SAT 98
[2019-05-23 11:18] VITALS: BP 120/94
--- NOTE | 2019-05-23 12:52 | OP.PCM_ITS ---
Report of Operation Date of Procedure: 05/23/19 Description of Surgical Findings:: PREOPERATIVE DIAGNOSES: 1. Sacroiliitis. 2. Sacroiliac joint dysfunction. POSTOPERATIVE DIAGNOSES: 1. Sacroiliitis. 2. Sacroiliac joint dysfunction. PROCEDURE PERFORMED: Bilateral sacroiliac joint steroid injection under fluoroscopy guidance. ANESTHESIA: MAC. BLOOD LOSS: Minimal. COMPLICATIONS: None. DESCRIPTION OF PROCEDURE: History and physical of today was reviewed. Risks and benefits of the procedure were explained. The patient understood and agreed to the procedure. Informed consent was obtained. IV inserted per routine betty col. The patient was taken to the operating room and placed in the prone position with a pillow positioned underneath the abdomen. The lower back and buttock area was prepped and draped in a sterile fashion using iodine x3. Under fluoroscopy guidance on an AP view, the bilateral SI joint was visualized. The skin and subcutaneous tissue was anesthetized with approximately 3 mL of 1% lidocaine using a 25-gauge regular needle. Under direct visualization with fluoroscopy at approximately 15-degree angle, using a 22-gauge 3-1/2-inch spinal needle, the needle was advanced via the skin. The tip of the needle was maneuvered and directed towards the inferior one-third of the posterior SI joint. Once the tip of the needle was at the vicinity of the joint, after negative aspiration for blood or CSF, a total of 1 mL of contrast was injected to confirm correct placement of the needle as well as cephalocaudal spread. Confirmation was obtained on AP as well as oblique view. After repeated n egative aspiration and confirmation, a total of 9 mL of preservative-free 0.25% Marcaine with 80 mg of Depo-Medrol was injected in and around the SI joint in divided doses between both levels. The needle was then removed intact. The patient experienced no sign or symptoms of intrathecal or intravascular injection. The patient experienced no paresthesia. The procedure was completed without any apparent difficulty or any complications. The patient appeared to tolerate it well. ASSESSMENT AND PLAN: This is a 53-year-old male with sacroiliitis, sacroiliac joint dysfunction status post bilateral sacroiliac joint steroid injection under fluoroscopic guidance patient will continue his current medications patient will follow in approximately 2 weeks for reevaluation.
== END 2019-05-23 11:23 | disposition home or self-care (01) ==
LOC: SDC 08:33 → AC 08:39
PROVIDERS: Family Provider Family Medicine; PCP Family Medicine; Referring Provider Anesthesiology Pain Medicine; Visit Provider Anesthesiology Pain Medicine
PROC: 3E0U3GC Introduction of Other Therapeutic Substance into Joints, Percutaneous Approach (ICD-10-PCS; CPT 27096; principal; 2019-05-23 10:15)
DX: M46.1 Sacroiliitis, not elsewhere classified (principal); M53.3 Sacrococcygeal disorders, not elsewhere classified; M51.16 Intervertebral disc disorders with radiculopathy, lumbar region; M51.17 Intervertebral disc disorders with radiculopathy, lumbosacral region; M48.07 Spinal stenosis, lumbosacral region; M43.16 Spondylolisthesis, lumbar region; M51.34 Other intervertebral disc degeneration, thoracic region; M50.30 Other cervical disc degeneration, unspecified cervical region; M50.10 Cervical disc disorder with radiculopathy, unspecified cervical region; M47.22 Other spondylosis with radiculopathy, cervical region; M43.12 Spondylolisthesis, cervical region; M79.7 Fibromyalgia; J44.9 Chronic obstructive pulmonary disease, unspecified; E78.00 Pure hypercholesterolemia, unspecified; K21.9 Gastro-esophageal reflux disease without esophagitis; M19.90 Unspecified osteoarthritis, unspecified site; G47.00 Insomnia, unspecified; F41.0 Panic disorder [episodic paroxysmal anxiety]; F32.9 Major depressive disorder, single episode, unspecified; F41.9 Anxiety disorder, unspecified; Z79.891 Long term (current) use of opiate analgesic; F17.210 Nicotine dependence, cigarettes, uncomplicated
CPT/HCPCS: 01160; 27096; 72202; 76000; 77002; J7120

== ENCOUNTER → 2019-07-15 10:51 | Outpatient (CLI) | payer MEDICAID, SELFPAY ==
--- NOTE | 2019-07-15 11:30 | MRI_ITS ---
STUDY: MRI CERVICAL SPINE WITHOUT CONTRAST REASON FOR EXAM: Male, 53 years old. Radiculitis and neck pain for many years TECHNIQUE: Standardized fat and water weighted pulse sequences were obtained in the sagittal and axial planes. COMPARISON: 25 February 2019 plain films FINDINGS: Craniocervical junction is intact and aligned. There is grade 1 degenerative anterolisthesis of C5 on C6, approximately 2 mm, and C7 on T1, less than 2 mm. Diffuse marrow and paraspinal soft tissues are normal. Thecal sac is patent. Spinal cord is normal in size, shape and signal. There is moderate to severe right C3-C4 and C4-C5 foraminal stenosis. Remainder the foramina are patent. MRI/Spine Cervical (Routine) IMPRESSION: 1. Patent canal, normal cord. 2. Moderate to severe right C3-C4 and C4-C5 foraminal stenosis. Electronically Signed: Fatoumata Olsen, at 20:00 EST Tel , Service support ,
== END ==
PROVIDERS: Family Provider Family Medicine; PCP Family Medicine; Referring Provider Anesthesiology Pain Medicine; Visit Provider Anesthesiology Pain Medicine
DX: M47.22 Other spondylosis with radiculopathy, cervical region (principal); M50.10 Cervical disc disorder with radiculopathy, unspecified cervical region
CPT/HCPCS: 72141

== ENCOUNTER → 2020-03-23 14:30 | Outpatient (CLI) | payer MEDICAID, SELFPAY ==
[2020-03-23 17:51] LABS: Absolute Lymphocyte Count 2.01 X10^3/uL (0.83-4.51); Absolute Neutrophil Count 5.5 X10^3/uL (2.0-7.7); Basophil# 0.07 X10^3/uL; Basophil% 0.9 % (0-1); Eosinophil# 0.09 X10^3/uL; Eosinophils% 1.1 % (0-5); Hematocrit 45.7 % (40-54); Hemoglobin 15.2 g/dL (13.0-16.5); Lymphocyte # 2.01 X10^3/ul (4.0); Lymphocyte % 24.7 % (19-41); Mean Corp Hgb Conc 33.3 g/dL (32-36); Mean Corpuscular Hgb 30.9 pg (27.0-32.0); Mean Corpuscular Volume 92.9 fL (80-94); Mean Platelet Vol. 10.4 fl (6.2-12.0); Monocyte# 0.46 X10^3/uL; Monocyte% 5.7 % (0-10); NRBC Flagged by Analyzer 0 % (0-5); Neutrophil # 5.48 X10^3/uL (2.7-7.7); Neutrophil % 67.4 % (47-70); Platelet Count 308 K/mm3 (150-450); RBC Distribution Width CV 13.2 % (11.6-14.6); RBC Distribution Width SD 45.1 fl (35.1-43.9); Red Blood Count 4.92 M/mm3 (4.6-6.2); White Blood Count 8.1 K/mm3 (4.4-11.0)
[2020-03-23 18:04] LABS: Erythrocyte Sedimentation Rate 19 mm/hr (0-20)
[2020-03-23 18:10] LABS: AST(SGOT) 35 U/L (15-37); Alanine Aminotransfer ALT/SGPT 51 U/L (16-61); Albumin, Serum 3.9 g/dL (3.2-5.0); Alkaline Phosphatase 119 U/L (45-117); Anion Gap 8 (5-15); BUN 15 mg/dL (7-18); BUN/Creat Ratio 17.1 RATIO (10-20); CPK Total, Creatine Kinase 206 U/L (39-308); CRP 6.31 mg/L (0.0-3.0); Calcium,Total 9.2 mg/dL (8.5-10.1); Chloride 103 mmol/L (98-107); Creatinine, Serum 0.88 mg/dL (0.70-1.30); EST Glomerular Filtration Rate 96 mL/min (>60); Est Glom Filt Rate - Afr Amer 116 mL/min (>60); Globulin 3.8 g/dL (2.2-4.2); Glucose 90 mg/dL (74-106); Protein, Total 7.7 g/dL (6.4-8.2); Rheumatoid Factor < 10.0 IU/mL (<15); Sodium Level 138 mmol/L (136-145); Thyroid Stim Hormone (TSH) 0.87 uIU/mL (0.358-3.74)
[2020-03-26 20:55] LABS: ANTINUCLEAR ANTIBODIES DIRECT Negative (Negative)
== END ==
PROVIDERS: PCP Family Medicine; Referring Provider Family Medicine; Visit Provider Family Medicine
DX: M79.10 Myalgia, unspecified site (principal); M25.50 Pain in unspecified joint
CPT/HCPCS: 36415; 80053; 82550; 84443; 85025; 85652; 86038; 86140; 86431

== ENCOUNTER → 2020-08-23 08:57 | Outpatient (CLI) | payer MEDICAID, SELFPAY ==
[2020-08-23 10:45] LABS: ALB/GLOB Ratio 1.2 RATIO (0.9-2.4); AST(SGOT) 21 U/L (15-37); Alanine Aminotransfer ALT/SGPT 32 U/L (16-61); Albumin, Serum 4.1 g/dL (3.2-5.0); Alkaline Phosphatase 117 U/L (45-117); Anion Gap 3 (5-15); BUN 16 mg/dL (7-18); BUN/Creat Ratio 18.5 RATIO (10-20); Calcium,Total 9.3 mg/dL (8.5-10.1); Chloride 105 mmol/L (98-107); Cholesterol 191 mg/dL (200); Creatinine, Serum 0.86 mg/dL (0.70-1.30); EST Glomerular Filtration Rate 98 mL/min (>60); Est Glom Filt Rate - Afr Amer 118 mL/min (>60); Globulin 3.5 g/dL (2.2-4.2); Glucose 98 mg/dL (74-106); High Density Lipoprotein 38 mg/dL; Potassium 3.9 mmol/L (3.5-5.1); Protein, Total 7.6 g/dL (6.4-8.2); Sodium Level 137 mmol/L (136-145); Triglycerides 178 mg/dL; Very Low Density Lipoprotein 36 mg/dL (5-40)
== END ==
PROVIDERS: PCP Family Medicine; Referring Provider Family Medicine; Visit Provider Family Medicine
DX: E78.5 Hyperlipidemia, unspecified (principal)
CPT/HCPCS: 36415; 80053; 80061

== ENCOUNTER → 2020-12-24 09:19 | Outpatient (CLI) | payer MEDICAID, SELFPAY ==
[2020-12-24 11:27] LABS: Absolute Lymphocyte Count 1.85 X10^3/uL (0.83-4.51); Absolute Neutrophil Count 4.7 X10^3/uL (2.0-7.7); Basophil# 0.05 X10^3/uL; Basophil% 0.7 % (0-1); Eosinophil# 0.12 X10^3/uL; Eosinophils% 1.6 % (0-5); Hematocrit 43.7 % (40-54); Hemoglobin 14.4 g/dL (13.0-16.5); Lymphocyte # 1.85 X10^3/ul (0.83-4.51); Lymphocyte % 25.2 % (19-41); Mean Corpuscular Hgb 30.9 pg (27.0-32.0); Mean Corpuscular Volume 93.8 fL (80-94); Mean Platelet Vol. 10.6 fl (6.2-12.0); Monocyte# 0.55 X10^3/uL; Monocyte% 7.5 % (0-10); NRBC Flagged by Analyzer 0 % (0-5); Neutrophil # 4.73 X10^3/uL (2.7-7.7); Neutrophil % 64.6 % (47-70); Platelet Count 305 K/mm3 (150-450); RBC Distribution Width CV 13.6 % (11.6-14.6); RBC Distribution Width SD 46.5 fl (35.1-43.9); Red Blood Count 4.66 M/mm3 (4.6-6.2); White Blood Count 7.3 K/mm3 (4.4-11.0)
[2020-12-24 11:51] LABS: AST(SGOT) 36 U/L (15-37); Alanine Aminotransfer ALT/SGPT 37 U/L (16-61); Alkaline Phosphatase 108 U/L (45-117); CRP 8.66 mg/L (0.0-3.0); Creatinine, Serum 0.83 mg/dL (0.70-1.30); EST Glomerular Filtration Rate 102 mL/min (>60); Est Glom Filt Rate - Afr Amer 124 mL/min (>60)
[2020-12-24 13:10] LABS: Erythrocyte Sedimentation Rate 13 mm/hr (0-20)
[2020-12-28 16:09] LABS: VITAMIN B6 53.5 ug/L (5.3-46.7)
[2020-12-29 08:22] LABS: CCP IgG Antibodies 48 units (0-19)
== END ==
PROVIDERS: PCP Family Medicine; Referring Provider Internal Medicine Rheumatology; Visit Provider Internal Medicine Rheumatology
DX: E53.1 Pyridoxine deficiency (principal); M05.79 Rheumatoid arthritis with rheumatoid factor of multiple sites without organ or systems involvement; R74.8 Abnormal levels of other serum enzymes; R76.8 Other specified abnormal immunological findings in serum; G56.03 Carpal tunnel syndrome, bilateral upper limbs; M50.30 Other cervical disc degeneration, unspecified cervical region; M51.34 Other intervertebral disc degeneration, thoracic region; M51.36 Other intervertebral disc degeneration, lumbar region; M19.041 Primary osteoarthritis, right hand; M19.042 Primary osteoarthritis, left hand; M19.071 Primary osteoarthritis, right ankle and foot; M19.072 Primary osteoarthritis, left ankle and foot; M19.031 Primary osteoarthritis, right wrist; M19.032 Primary osteoarthritis, left wrist; Z79.1 Long term (current) use of non-steroidal anti-inflammatories (NSAID); Z79.899 Other long term (current) drug therapy; Z84.0 Family history of diseases of the skin and subcutaneous tissue; Z83.79 Family history of other diseases of the digestive system; Z82.69 Family history of other diseases of the musculoskeletal system and connective tissue
CPT/HCPCS: 36415; 82565; 84075; 84207; 84450; 84460; 85025; 85652; 86140; 86200

== ENCOUNTER → 2020-12-27 08:51 | Outpatient (CLI) | payer MEDICAID, SELFPAY ==
--- NOTE | 2020-12-27 08:53 | US_ITS ---
STUDY: ABDOMINAL ULTRASOUND - RIGHT UPPER QUADRANT REASON FOR VISIT: Male, 55 years old elevated labs hemithorax TECHNIQUE: Ultrasound evaluation of the right upper quadrant was performed with real-time and static obando-scale imaging. TECHNICAL QUALITY: Adequate. COMPARISON: None. FINDINGS: Liver: The liver measures 14 with heterogeneous parenchyma no cm obvious focal lesion. The bile ducts are within normal limits. There is hepatic color flow. The direction of portal flow is hepatopetal. There is no demonstrated mass lesion. There is minimal amount amount of fluid around the liver. Gallbladder: Normal distended gallbladder. The gallbladder wall measures 1.5 mm. There is a negative sonographic Pham''s sign. There is no pericholecystic fluid. There are no gallstones. Common Bile Duct (C.B.D.): The common bile duct measures 3.3 mm. Pancreas: Normal size of the head, body and tail of the pancreas. There is normal echogenicity of the pancreas. There is no demonstrated pancreatic mass or cyst. Right Kidney: Normal size of the right kidney. The right kidney measures 10.4 x 4.9 x 4.6 cm. Normal renal cortex. The right cortex measures 1.2 cm. There is no demonstrated renal mass or cyst. There is no right hydronephrosis. US/Abdomen Limited IMPRESSION: Normal right upper quadrant ultrasound examination. Electronically Signed: Chrissy Wise, at 11:13 EDT Tel , Service support ,
== END ==
PROVIDERS: PCP Family Medicine; Referring Provider Internal Medicine Rheumatology; Visit Provider Internal Medicine Rheumatology
DX: R74.8 Abnormal levels of other serum enzymes (principal)
CPT/HCPCS: 76705

== ENCOUNTER → 2021-04-10 12:19 | Outpatient (CLI) | payer MEDICAID, SELFPAY ==
[2021-04-10 12:54] LABS: Erythrocyte Sedimentation Rate 13 mm/hr (0-20)
[2021-04-10 12:56] LABS: Absolute Lymphocyte Count 2.41 X10^3/uL (0.83-4.51); Absolute Neutrophil Count 5.9 X10^3/uL (2.0-7.7); Basophil# 0.07 X10^3/uL; Basophil% 0.8 % (0-1); Eosinophil# 0.15 X10^3/uL; Eosinophils% 1.7 % (0-5); Hematocrit 40.8 % (40-54); Hemoglobin 13.5 g/dL (13.0-16.5); Lymphocyte # 2.41 X10^3/ul (0.83-4.51); Lymphocyte % 26.8 % (19-41); Mean Corp Hgb Conc 33.1 g/dL (32-36); Mean Corpuscular Hgb 30.4 pg (27.0-32.0); Mean Corpuscular Volume 91.9 fL (80-94); Monocyte# 0.43 X10^3/uL; Monocyte% 4.8 % (0-10); NRBC Flagged by Analyzer 0 % (0-5); Neutrophil # 5.89 X10^3/uL (2.7-7.7); Neutrophil % 65.6 % (47-70); Platelet Count 305 K/mm3 (150-450); RBC Distribution Width CV 14.2 % (11.6-14.6); RBC Distribution Width SD 48.1 fl (35.1-43.9); Red Blood Count 4.44 M/mm3 (4.6-6.2)
[2021-04-10 13:03] LABS: AST(SGOT) 28 U/L (15-37); Alanine Aminotransfer ALT/SGPT 40 U/L (16-61); CRP 4.49 mg/L (0.0-3.0); Creatinine, Serum 0.79 mg/dL (0.70-1.30); EST Glomerular Filtration Rate 109 mL/min (>60); Est Glom Filt Rate - Afr Amer 132 mL/min (>60)
== END ==
PROVIDERS: PCP Family Medicine; Referring Provider Internal Medicine Rheumatology; Visit Provider Internal Medicine Rheumatology
DX: M05.79 Rheumatoid arthritis with rheumatoid factor of multiple sites without organ or systems involvement (principal); R76.8 Other specified abnormal immunological findings in serum; E53.1 Pyridoxine deficiency; M19.031 Primary osteoarthritis, right wrist; M19.032 Primary osteoarthritis, left wrist; M51.36 Other intervertebral disc degeneration, lumbar region; M51.34 Other intervertebral disc degeneration, thoracic region; M19.071 Primary osteoarthritis, right ankle and foot; M19.072 Primary osteoarthritis, left ankle and foot; Z79.1 Long term (current) use of non-steroidal anti-inflammatories (NSAID); Z79.899 Other long term (current) drug therapy
CPT/HCPCS: 36415; 82565; 84207; 84450; 84460; 85025; 85652; 86140

== ENCOUNTER → 2022-04-28 | Outpatient (CLI) | payer MEDICAID, SELFPAY ==
--- NOTE | 2022-04-28 15:28 | RAD_ITS ---
EXAM: XR LEFT SHOULDER COMPLETE, 2 OR MORE VIEWS CLINICAL INDICATION: INJURY TECHNIQUE: Two or more views of the left shoulder. This report was created using [employer] report generation technology. COMPARISON: None. FINDINGS: BONES/JOINTS: Unremarkable. No acute fracture. No subluxation. Normal alignment. Preservation of the joint space. No sclerotic or destructive changes observed. SOFT TISSUES: Unremarkable. No soft tissue swelling or gas. No radiopaque foreign body. RAD/Shoulder min 2 Views IMPRESSION: Negative left shoulder x-rays. Electronically Signed: Samir Mosquera MD at 23:59 EDT ,
== END | disposition home or self-care (01) ==
LOC: MTRAD 15:26
PROVIDERS: PCP Family Medicine; Referring Provider Family Medicine; Visit Provider Family Medicine
DX: S49.92XA Unspecified injury of left shoulder and upper arm, initial encounter (principal)
CPT/HCPCS: 73030

== ENCOUNTER → 2022-05-15 | Outpatient (CLI) | payer MEDICAID, SELFPAY ==
--- NOTE | 2022-05-15 06:34 | MRI_ITS ---
STUDY: MRI LEFT SHOULDER REASON FOR EXAM: Male, 56 years old. INJURY TECHNIQUE: Standardized fat and water weighted pulse sequences were obtained in all 3 orthogonal planes. COMPARISON: X-ray of the left shoulder dated April 28, 2022 FINDINGS: A small 1.02 cm full-thickness tear of the anterior aspect of the supraspinatus tendon is present just distal to the musculotendinous junction, overlying the middle one third aspect of the humeral head. Partial tearing and moderate tendinosis is present in the fibers surrounding the supraspinatus full thickness tear. A full-thickness tear of the superior lateral fibers of the subscapular is tendon is also present at the level of the rotator interval with tearing of the transverse ligament resulting and medial subluxation/dislocation of the intracapsular aspect along head of the biceps tendon. A small glenohumeral joint effusion is present. Normal infraspinatus tendon. Normal teres minor tendon. Normal supraspinatus muscle. Normal infraspinatus muscle. Normal subscapularis muscle. Normal teres minor muscle. Normal glenohumeral articulation. Normal humeral head and visualized proximal humerus. Normal biceps labral complex. Normal intracapsular long biceps tendon. Normal labrum. Normal capsulo- ligamentous complex. Normal rotator interval. Normal acromioclavicular articulation. There is a Type II morphology (curved), with a neutral orientation. There is minimal fluid distention of the subacromial bursa, consistent with mild subacromial-subdeltoid bursitis. Normal visualized coracohumeral and coracoacromial ligaments. Normal quadrilateral space. Normal axillary space. Normal deltoid muscle. Normal trapezius muscle. MRI/Upper Ext Joint Only(Routine) IMPRESSION: 1. Small 1.02 cm full-thickness tear of the anterior aspect of the supraspinatus tendon is present just distal to the musculotendinous junction, overlying the middle one third aspect of the humeral head. Partial tearing and moderate tendinosis is present in the fibers surrounding the supraspinatus full thickness tear. 2. A full-thickness tear of the superior lateral fibers of the subscapular is tendon is also present at the level of the rotator interval with tearing of the transverse ligament resulting and medial subluxation/dislocation of the intracapsular aspect along head of the biceps tendon. Electronically Signed: Tyron Arnold MD at 11:13 EST ,
== END | disposition home or self-care (01) ==
LOC: MRI 06:23
PROVIDERS: PCP Family Medicine; Visit Provider Family Medicine
DX: S49.92XA Unspecified injury of left shoulder and upper arm, initial encounter (principal)
CPT/HCPCS: 73221

== ENCOUNTER → 2022-06-12 | Outpatient (CLI) | payer MEDICAID, SELFPAY | END | disposition home or self-care (01) | PROVIDERS: PCP Family Medicine; Referring Provider Family Medicine; Visit Provider Family Medicine | DX: E78.5 Hyperlipidemia, unspecified (principal) ==

== ENCOUNTER 2022-06-24 12:38 | Day surgery (SDC) | payer MEDICAID, SELFPAY ==
--- NOTE | 2022-06-12 09:03 | EKG12_ITS ---
Test Reason : PREOP Blood Pressure : / mmHG Vent. Rate : 062 BPM Atrial Rate : 062 BPM P-R Int : 130 ms QRS Dur : 098 ms QT Int : 382 ms P-R-T Axes : 071 077 069 degrees QTc Int : 387 ms Normal sinus rhythm Normal ECG Confirmed by KEYONA MC, QI ([id number]), assistant film editor HEIKE SABA ([id number]) on 06/12/2022 2:08:52 PM Referred By: Dontae Cruz Confirmed By:EFRAÍN RAND MD
[2022-06-12 09:31] LABS: Hematocrit 47.6 % (40-54); Hemoglobin 16.2 g/dL (13.0-16.5); Mean Corpuscular Hgb 31.8 pg (27.0-32.0); Mean Corpuscular Volume 93.5 fL (80-94); Mean Platelet Vol. 9.8 fl (6.2-12.0); Platelet Count 285 K/mm3 (150-450); RBC Distribution Width CV 13.9 % (11.6-14.6); RBC Distribution Width SD 47.9 fl (35.1-43.9); Red Blood Count 5.09 M/mm3 (4.6-6.2); White Blood Count 11.9 K/mm3 (4.4-11.0)
[2022-06-12 10:00] LABS: ALB/GLOB Ratio 1.1 RATIO (0.9-2.4); AST(SGOT) 21 U/L (15-37); Alanine Aminotransfer ALT/SGPT 27 U/L (16-61); Alkaline Phosphatase 101 U/L (45-117); Anion Gap 4 (5-15); BUN 19 mg/dL (7-18); BUN/Creat Ratio 21.1 RATIO (10-20); Calcium,Total 9.5 mg/dL (8.5-10.1); Chloride 105 mmol/L (98-107); Cholesterol 158 mg/dL (200); EST Glomerular Filtration Rate 93 mL/min (>60); Est Glom Filt Rate - Afr Amer 112 mL/min (>60); Globulin 3.7 g/dL (2.2-4.2); Glucose 109 mg/dL (74-106); High Density Lipoprotein 36 mg/dL; Potassium 4.4 mmol/L (3.5-5.1); Protein, Total 7.7 g/dL (6.4-8.2); Sodium Level 141 mmol/L (136-145); Triglycerides 116 mg/dL; Very Low Density Lipoprotein 23 mg/dL (5-40)
[2022-06-24] VITALS (7 sets, daily range): BP systolic 110–122; BP diastolic 75–84; PULSE 64–73; RESP 16; TEMP 36.1–36.7; O2SAT 92–99; BMI 21.4
[2022-06-24] MEDS: Lactated Ringers 1,000 ML 15 ML IV (13:23)
--- NOTE | 2022-06-24 15:11 | HP.PCM_ITS ---
History and Physical Date of Admission: 06/24/22 [facility] [id number] [place] [address] OFFICE VISIT Date of Service:? 05/21/22 MR#: [id number] Acct: [id number] Name:LOLIS RAMON Jr. Rep #: [id number] : 1965 ? ? Provider: Dr. Dontae Cruz, Age/Sex:? 56/M ? ? Location: [facility] [place].[facility] Status: Signed Intake Intake Visit Reasons:?left shoulder Allergies Sulfa (Sulfonamide Antibiotics) Allergy (Verified 05/23/19 08:52) Anaphylaxisatorvastatin [From Lipitor] Adverse Reaction (Severe, Verified 05/07/22 09:32) muscle spasmclindamycin Adverse Reaction (Severe, Verified 05/07/22 09:32) Vomitingmeloxicam [From Mobic] Adverse Reaction (Severe, Verified 05/07/22 09:32) Vomiting PFSH Family History?(Updated 05/07/22 @ 09:34 by Monika Haq) Mother HypertensionFather Myocardial infarction Social History?(Updated 05/07/22 @ 09:34 by Monika Haq) Smoking Status:? Current every day smoker tobacco type: cigarettes HPI left shoulder Details: Parts of this documentation were recorded by a scribe, this documentation accurately reflects the service provided and the decisions made by me, Dr. Dontae Cruz, DO 05/21/22 0857. LOLIS LUCAS is a 56 year old M here today for? F/U on the left shoulder after having MRI cmpleted.? Symptoms are unchanged he continues to have pain with any attempted shoulder range of motion and has really minimal active range of motion his has been performing passive range of motion with him.? He continues to smoke. Ortho Exam General General: Yes no acute distress Neurologic: Yes alert and Yes oriented x3 Psychologic: Yes reasonable and appropriate Left Shoulder Skin/Wound: Yes CDI, No ecchymosis, No erythema and No swelling Testing: No belly press normal SHOULDER: unable to preform belly press He has only a couple degrees of abduction forward flexion with significant pain He is nontender over his AC joint there is no concerning skin skin signs around the shoulder 65 external rotation able to preform resisted external rotation with pain Supplemental Info 05/15/2022 MRI right shoulder: 1 cm full-thickness tear of the anterior supraspinatus tendon just distal to the muscular tendinous junction, full- thickness tear of the superior lateral fibers of the subscapularis tendon resulting in medial subluxation dislocation of the biceps tendon, type II acromion with subdeltoid bursitis Coding Level of Care Code Off vis,est,level 3 Diagnoses Complete rotator cuff tear of left shoulder? M75.122 Biceps tendinitis of left shoulder? M75.22 Assessment and Plan Assessment and Plan (1) Complete rotator cuff tear of left shoulder: ?Status:?Acute (2) Biceps tendinitis of left shoulder: ?Status:?Acute Plan Patient educated that he has a subscapularis and supraspinatus tendon tear of the RTC. These are full-thickeness tears and he also has a biceps dislocation from the intertubercular groove, which makes me believe his subscapularis is more than a partial tear of the superior fibers to me this looks like a complete tear. His treatment options are to trial PT for strengthening or there is a surgical option. Recommend a RTC repair of the supraspinatus and subscapularis tendons along with a biceps tenotomy, and subacromial decompression, educated that because he is a smoker his tissues quality is poor and therefore there is a risk of re-tearing of the tissue.? We also discussed the type of tear of the supraspinatus as it extends to the muscular tendinous junction may make it a repairable versus more of a side to side type of repair.? Discussed expected postoperative course of biceps tenotomy with Kenan deformity and cramping in the muscle belly for a few months we did discuss alternatively biceps tenodesis but due to his age and tissue quality decided to go ahead and proceed with biceps tenotomy . discuss benefits of smoking cessation to decrease risk of infection and repair failure. Edcucated that with this surgery he will be unable to actively lift the arm for 6 weeks after surgery. This can be a 6 month recovery period. Reviewed the pre-operative plans with the patient. Risks and benefits of the procedure were fully explained, including but not limited to infection, neurovascular injury, continued pain, arthritis, stiffness, need for further surgery, re-injury, DVT, PE, general risks of anesthesia, and loss of limb or life. The patient understands all the risks and does wish to proceed with written consent. No ibuprofen or Aleve for 1 week prior to surgery. Follow up after surgery or sooner if pain, swelling, numbness or associated symptoms, or concerns develop.? All questions answered. Patient in agreement of plan. 05/21/22 0957 <Electronically signed by Dontae Cruz DO> Date Dontae Cruz DO Cosigner Signature: Date (if applicable) I have examined the patient and the H&P has been reviewed. There are no clinical changes since date of exam.
[2022-06-24] MEDS: Cefazolin 2 GM in 0.9% Normal Saline 100 ML IV (15:42)
[2022-06-24] MEDS: Epinephrine (1 mg/ml) 1 MG/ML VIAL (16:45)
[2022-06-24] MEDS: Bupiv/Epi 0.5% Mpf 30 ML Vial (18:11)
--- NOTE | 2022-06-24 18:32 | OP.PCM_ITS ---
Operative Report Date of Procedure: 06/24/22 Preoperative diagnosis: Left shoulder supraspinatus subscapularis rotator cuff tear biceps tear with subluxation Postoperative diagnosis: Full-thickness retracted supraspinatus rotator cuff tear retracted medial to the glenoid chronic subscapularis tear, biceps subluxation and tear Procedure: Arthroscopic speed bridge rotator cuff repair of supraspinatus 2 medial anchors 4.753 lateral anchors 5.5 l and single anchor repair subscapularis 4.75 all bio composite Implants: Arthrex [ Anesthesia: General no block was given secondary to COPD EBL: 25 cc Complications none Indication for procedure: This is a 56-year-old male smoker patient who had a nontraumatic injury to his left shoulder, he reportedlyhe was on all fours and he threw a ball by just rotating his forearm/hand into supination and then he felt a tear over the anterior lateral shoulder with an instant pain and inability to lift his arm. He did have MRI evidence of full-thickness supraspinatus cuff tear and upper subscapularis tear with biceps subluxation out of the intertubercular groove, he denies prior injury. risks benefits and alternatives of the procedure were reviewed including risk of bleeding infection nerve artery tissue damage need for further surgery continued pain postoperative stiffness and need for postoperative physical therapy and continued pain and retear. Procedure: Patient was met in the preoperative holding area the operative extremity was identified by both the patient and the physician and was marked. Patient was met by anesthesia and brought back to the operating room on a wheeled cart. Patient was transferred to the operating table in the supine position. Anesthesia was started. Patient was then positioned in the beach chair configuration. Bony prominences were well-padded. The patient was prepped and draped in the usual sterile fashion. A timeout was called to ensure the proper patient procedure and extremity were being contemplated. Anatomic landmarks were palpated and marked with a marking pen. A 0.25% Marcaine with epinephrine was injected into the planned portal sites. An 11 blade scalpel was used to make a stab incision in the posterior lateral portal. Arthroscope was inserted into the glenohumeral space with ease. Inflow and outflow tubes were a ttached and arthroscopic visualization began. An anterior portal was established with an 18-gauge spinal needle. Immediately there was noted to be tearing of the supraspinatus and subscapularis however the subscapularis was thoroughly scarred into the anterior soft tissues and was definitely not a new tear significant dissection with ArthroCare wand was required to free the subscapularis from the anterior tissue the biceps was torn and degenerative and a biceps tenotomy was performed with an ArthroCare wand, was some degenerative labral tearing which was debrided with a shaver once the subscapularis was mobilized from the soft tissue anteriorly to length stitches were placed in a luggage tag type of configuration to the subscapularis and the stitches were passed through a 4.75 bio composite swivel lock at the footprint of the subscapularis the arthroscope was then repositioned into the subacromial space and a lateral portal was established. A subacromial decompression with an ArthroCare wand and shaver was performed. There was noted to be significant thickened bursal tissue which was debrided [The bursal side of the rotator cuff was evaluated . The supraspinatus was retracted medial to the glenoid and was a massive full-thickness tear we had to place a luggage tag stitch into the rotator cuff just to pull it out in order to hold it for the repair. We prepared the footprint with a shaver and placed 2 medial 4.75 anchors we then passed individual strands through the supraspinatus and a modified speed bridge fashion we then placed 2 anterior limbs into posterior limb separately and secured these both to a lateral anterior and posterior 5.5 anchor the anterior anchor broke during placement however we were able to retrieve it and place a secondary anchor just lateral to this. Excellent repair was achieved. The wound was thoroughly irrigated through the scope followed by a subacromial injection with 8 cc of 0.5% Marcaine plain. Suture portals were closed with 3-0 nylon arthroscopic stitches followed by Xeroform 4 x 4 ABD and a Ioban dressing. A abduction sling and pillow was placed. Anesthesia was reversed and patient tolerated the procedure well was and was transferred to the PACU. All counts were correct patient will follow-up in the office in 2 weeks . Patient may begin active elbow and wrist range of motion and pendulums of the shoulder but no active shoulder motion, dressing is to be left on for 48 hours before being changed daily after showering Patient was counseled on smoking cessation.
--- NOTE | 2022-06-24 18:44 | DCINST_ITS ---
Discharge Instructions Diet Discharge Diet: No restrictions Dressing / Incision Additional Dressing/Incision Instructions:: Leave the dressing on and intact for 48 hours. . Then may remove and shower with warm water and antibacterial soap. But do not submerge in tub for 3 weeks. Ice shoulder 15 min on and 15 mins off next 72 hrs. May remove sling for elbow range of motion and pendulum exercises only then replace sling. Absolutely no active shoulder motion. Do not lift push pull at all with operative extremity . Encourage finger and wrist range of motion. Doxycycline antibiotic has been shown to aid in rotator cuff healing please take as directed . Smoking will slow your recovery and healing and increased risk of infection. Cessation is advised . if any concerns call Dr. Cruz's office. Follow Up Care Please Follow Up With: Dontae Cruz DO Test Results: Test results from this visit will be discussed in further detail at your follow- up appointment, if applicable. Discharge Plan Admission Attending Provider: Dontae Cruz Primary Care Provider: Leif Lazcano Consulting Providers: Oneil Field Discharge Orders/Prescriptions Prescriptions: New acetaminophen [acetaminophen] 500 mg tablet 1,000 mg PO Q6H PRN Qty: 100 0RF oxycodone 5 mg tablet 5 - 10 mg PO Q4H PRN (Reason: pain) 5 Days Qty: 40 0RF doxycycline hyclate 100 mg tablet 100 mg PO BID Qty: 80 0RF Rx Instructions: Doxycycline has been shown to aid in rotator cuff healing No Action montelukast 10 mg tablet 1 tablet PO DAILY rosuvastatin 10 mg tablet 10 mg PO DAILY Label Comments: TAKE 1 TABLET BY MOUTH ONCE DAILY fluticasone propionate 50 mcg/actuation spray,suspension 2 spray intranasal DAILY PRN (Reason: ALLERGIES) Label Comments: USE 2 SPRAY(S) IN EACH NOSTRIL ONCE DAILY albuterol sulfate [Ventolin HFA] 1 INHALER inhaler 2 puff inhalation Q4H PRN PRN (Reason: COPD) Zyrtec 10 mg Capsule 10 mg PO DAILY Spiriva Respimat 4 GM mist 4 g IH BID Excedrin Migraine 250-250-65 mg Tablet 1 tab PO Q6H PRN (Reason: ARTHRITIS) Other Ambulatory Orders: 12 Lead EKG (Routine) Timeframe: [id number] Location: None Selected Ordered By: Dr. Oneil Field Referrals / Follow Up: Leif Lazcano MD [Primary Care Provider] - Disposition Disposition (needs filled in before D/C Order can be placed): Home, Self Care
[2022-06-24] MEDS: Cefazolin 1 GM/50 ML BAG IV (18:58)
[2022-06-24] MEDS: oxyCODONE 5 MG Tablet 10 MG PO (19:19)
== END 2022-06-24 20:07 | disposition home or self-care (01) ==
LOC: SDC 12:39 → AC 12:47
PROVIDERS: Anesthesiology; PCP Family Medicine; Referring Provider Orthopaedic Surgery; Visit Provider Orthopaedic Surgery
PROC: (CPT 29827; principal; 2022-06-24 13:10)
DX: M75.122 Complete rotator cuff tear or rupture of left shoulder, not specified as traumatic (principal); J44.9 Chronic obstructive pulmonary disease, unspecified; S46.219A Strain of muscle, fascia and tendon of other parts of biceps, unspecified arm, initial encounter; M75.22 Bicipital tendinitis, left shoulder; X58.XXXA Exposure to other specified factors, initial encounter; F17.210 Nicotine dependence, cigarettes, uncomplicated; Z79.899 Other long term (current) drug therapy
CPT/HCPCS: 29827; 29826; 36415; 80053; 80061; 85027; 93005; C1776; J7120; J2405

== ENCOUNTER 2022-08-20 11:00 | Outpatient (RCR) | payer MEDICAID, SELFPAY ==
--- NOTE | 2022-07-10 12:52 | HP.PTEVAL_ITS ---
Patient's Visit Information LOLIS LUCAS Jr. is a 56 year old M referred to Physical Therapy by Dr. Dontae Cruz, DO with a diagnosis of OTHER ACUTE POSTPROCEDURAL PAIN ,S/P RRTC REPAIR. Date of Evaluation: 07/10/22 Physical Therapist: Yosi Parada, PT, Cert MDT, OCS - Visit Plan Frequency: 3x /Week Duration: 12 weeks Plan: S/P RTC REPAIR OF SUPRASINPATUS ,SUBSCAPULARS 06/24/22. SEE GUIDELINES RTC GUIDELINES FOR MASSIVE TEAR. SUBSCAPULARS PRECAUTIONS ( 12WEEKS) NO ER PAST 30 DEGREES ,NO CROSS BODY ADDUCTION /NO ACTIVE IR OR BEHIND BACK,NO SUPPORTING BODY WEIGHT OR MD. PROM ONLY PER MD INTIALLY. PT INTERVENTIONS INTIALL PROM PHASE 1 6WEEKS ,PROGRESS TO AAROM 6 WEEKS PHAE 2,THEN STRENGTHNEING RTC/SCAPULAR , MANUAL THERAPY. CP/MHP - Subjective This 56 y/o male presents to physical therapy with RTC repair of supraspinatus a nd subscapularis . Patient underwent s/p RTC repair on 06/24/[address] Cruz at [facility] outpatient d/c DOS with sling. Patient initially tore RTC Apr 2022 ,playing with granddaughter and felt a tore. Patient had severe pain seen family and recommended Dr Cruz and had MRI showed RTC tears but doing surgery found massive tear of supraspinatus. Seen DR recommended PT and start PROM only. RTD in 4weeks. Started pendulum and PROM elbow. Denies paresthesia/tingling . MEDS: oxycodone/ doxycycline Patient has difficulty sleeping due to pain needs arms propped. Patient has impairments with all functional activities ,self hygiene and needs to bath and some dressing . Patient condition affects QOL and function. SOCAIL: . VOCATION: unemployed - Pain Left Shoulder Pain Intensity (Out of 10): 5 Pain Intensity Range: 10 - Objective POSTURE: mild forward posture rounded shoulders head forward. PALAPTION: tender global. NEURO: denies paresthesia/tingling. SKIN : sutures well approximate. EDEMA: mild edema in bicep region. PROM: supine shoulder flexion ~ 105 degrees ,scaption 100 degrees ,ER ~ 10 DEGRRES. PROM - Balance/Special Test Scores Quick DASH Score: 81.8175 - Goals Goal 1:: Patient to be I with HEP for RTC repair with subscapularis precuations Goal Time Frame: 8-12 Weeks Goal 2:: Patient to demonstrate 60% improvement with improved function and less pain for ADL's Goal Time Frame: 8-12 Weeks Goal 3:: Patient to improve PROM shoulder flexion and abduction in scaption 150 degrees Goal Time Frame: 6-8 Weeks Goal 4:: Patient to improve AROM shoulder flexion/abduction 150 degrees for ADL's and functional tasks above 90 degrees Goal Time Frame: 12-16 Weeks Goal 5:: Patient to increase strength of RTC 4-/5 and deltoid 3+/5 to improve function and ADL's Goal Time Frame: 12-16 Weeks Goal 6:: Patient to improve quick dash by 10-15 point to improve QOL and function Goal Time Frame: 12-16 Weeks - Rehabilitation Potential Physical Therapy Diagnosis: This patient underwent s/p RTC repair supraspinatus and subscapularis with pain, decrease ROM ,strength impairs ADLS and self hygiene thus benefIt from skilled PT Rehabilitation Potential: Good - Anticipated Interventions Patient/Client Instruction: Educate patient on: Condition, Plan of Care For the Purpose of:: To decrease pain, To increase ROM, To improve muscle performance and motor function, To improve ability to perform ADL's, To increase tolerance to activity/condition/position, To improve ability of physical actions for home/community/work/leisure, To improve health of tissue, To decrease soft tissue restriction, To increase flexibility/ROM, To improve endurance, To improve health and function, To prevent re-injury, To improve tolerance to ADL's Therapeutic Exercise to Include: Strength training, Postural training, Flexibilty training, Passive ROM, Active ROM For the Purpose of:: To decrease pain, To increase ROM, To improve nutrient delivery to tissue, To increase oxygenation perfusion, To improve muscle performance and motor function, To improve ability to perform ADL's, To improve performance and independence with ADL's, To improve health of tissue, To decrease soft tissue restriction, To increase flexibility/ROM, To improve tolerance to ADL's Manual Therapy Techniques to Include: Passive ROM Comment: SHOULDER For the Purpose of:: To decrease pain, To increase ROM, To improve nutrient delivery to tissue, To increase oxygenation perfusion, To improve health of t issue, To decrease soft tissue restriction Thank you for the opportunity to evaluate your patient. For Medicare and Medicare HMO plans, please review the plan of care and approve it. It will need to be FAXED BACK to us at [phone] for Medicare purposes. For Medicare only, by signing this I certify the plan of care. Please let me know if there are questions or concerns regarding this plan of care. Physician Signature: Date:
--- NOTE | 2022-07-15 08:01 | HP.PTEVAL_ITS ---
Patient's Visit Information LOLIS LUCAS Jr. is a 56 year old M referred to Physical Therapy by Dr. Dontae Cruz, DO with a diagnosis of OTHER ACUTE POSTPROCEDURAL PAIN ,S/P RTC REPAIR. Date of Evaluation: 07/10/22 Physical Therapist: Yosi Parada, PT, Cert MDT, OCS - Visit Plan Frequency: 3x /Week Duration: 12 weeks Plan: S/P RTC REPAIR OF SUPRASINPATUS ,SUBSCAPULARS 06/24/22. SEE GUIDELINES RTC GUIDELINES FOR MASSIVE TEAR. SUBSCAPULARS PRECAUTIONS ( 12WEEKS) NO ER PAST 30 DEGREES ,NO CROSS BODY ADDUCTION /NO ACTIVE IR OR BEHIND BACK,NO SUPPORTING BODY WEIGHT OR MD. PROM ONLY PER MD INTIALLY. PT INTERVENTIONS INTIALL PROM PHASE 1 6WEEKS ,PROGRESS TO AAROM 6 WEEKS PHAE 2,THEN STRENGTHNEING RTC/SCAPULAR , MANUAL THERAPY. CP/MHP - Subjective This 56 y/o male presents to physical therapy with RTC repair of supraspinatus and subscapularis left . Patient underwent s/p RTC repair on 06/24/[address] Cruz at [facility] outpatient d/c DOS with sling. Patient initially tore RTC Apr 2022 ,playing with granddaughter and felt a tore. Patient had severe pain seen family and recommended Dr Cruz and had MRI showed RTC tears but doing surgery found massive tear of supraspinatus. Seen DR recommended PT and start PROM only. RTD in 4weeks. Started pendulum and PROM elbow. Denies paresthesia/tingling . MEDS: oxycodone/ doxycycline Patient has difficulty sleeping due to pain needs arms propped. Patient has impairments with all functional activities ,self hygiene and needs to bath and some dressing . Patient condition affects QOL and function. SOCAIL: . VOCATION: unemployed - Pain Left Shoulder Pain Intensity (Out of 10): 5 Pain Intensity Range: 10 - Objective POSTURE: mild forward posture rounded shoulders head forward. PALAPTION: tender global. NEURO: denies paresthesia/tingling. SKIN : sutures well approximate. EDEMA: mild edema in bicep region. PROM: supine shoulder flexion ~ 105 degrees ,scaption 100 degrees ,ER ~ 10 DEGRRES. PROM - Balance/Special Test Scores Quick DASH Score: 81.8175 - Goals Goal 1:: Patient to be I with HEP for RTC repair with subscapularis precuations Goal Time Frame: 8-12 Weeks Goal 2:: Patient to demonstrate 60% improvement with improved function and less pain for ADL's Goal Time Frame: 8-12 Weeks Goal 3:: Patient to improve PROM shoulder flexion and abduction in scaption 150 degrees Goal Time Frame: 6-8 Weeks Goal 4:: Patient to improve AROM left shoulder flexion/abduction 150 degrees for ADL's and functional tasks above 90 degrees Goal Time Frame: 12-16 Weeks Goal 5:: Patient to increase strength of RTC left 4-/5 and deltoid 3+/5 to improve function and ADL's Goal Time Frame: 12-16 Weeks Goal 6:: Patient to improve quick dash by 10-15 point to improve QOL and function Goal Time Frame: 12-16 Weeks - Rehabilitation Potential Physical Therapy Diagnosis: This patient underwent s/p RTC left repair supraspinatus and subscapularis with pain, decrease ROM ,strength impairs ADLS and self hygiene thus benefIt from skilled PT Rehabilitation Potential: Good - Anticipated Interventions Patient/Client Instruction: Educate patient on: Condition, Plan of Care For the Purpose of:: To decrease pain, To increase ROM, To improve muscle performance and motor function, To improve ability to perform ADL's, To increase tolerance to activity/condition/position, To improve ability of physical actions for home/community/work/leisure, To improve health of tissue, To decrease soft tissue restriction, To increase flexibility/ROM, To improve endurance, To improve health and function, To prevent re-injury, To improve tolerance to ADL's Therapeutic Exercise to Include: Strength training, Postural training, Flexibilty training, Passive ROM, Active ROM For the Purpose of:: To decrease pain, To increase ROM, To improve nutrient delivery to tissue, To increase oxygenation perfusion, To improve muscle performance and motor function, To improve ability to perform ADL's, To improve performance and independence with ADL's, To improve health of tissue, To decrease soft tissue restriction, To increase flexibility/ROM, To improve tolerance to ADL's Manual Therapy Techniques to Include: Passive ROM Comment: SHOULDER For the Purpose of:: To decrease pain, To increase ROM, To improve nutrient delivery to tissue, To increase oxygenation perfusion, To improve health of tissue, To decrease soft tissue restriction Thank you for the opportunity to evaluate your patient. For Medicare and Medicare HMO plans, please review the plan of care and approve it. It will need to be FAXED BACK to us at [phone] for Medicare purposes. For Medicare only, by signing this I certify the plan of care. Please let me know if there are questions or concerns regarding this plan of care. Physician Signature: Date:
--- NOTE | 2023-01-14 13:40 | HP.PT.NRP ---
Patient Information Patient Information: LOLIS LUCAS Jr. was seen in my office for initial evaluation on 07/10/22. The following Plan of Care was established for this patient: POC Established Initial Frequency: 3x /Week Initial Duration: 12 weeks Anticipated Interventions Patient/Client Instruction: Educate patient on: Condition and Plan of Care For the Purpose of:: To decrease pain, To increase ROM, To improve muscle performance and motor function, To improve ability to perform ADL's, To increase tolerance to activity/condition/position, To improve ability of physical actions for home/community/work/leisure, To improve health of tissue, To decrease soft tissue restriction, To increase flexibility/ROM, To improve endurance, To improve health and function, To prevent re-injury and To improve tolerance to ADL's Therapeutic Exercise to Include: Strength training, Postural training, Flexibilty training, Passive ROM and Active ROM For the Purpose of:: To decrease pain, To increase ROM, To improve nutrient delivery to tissue, To increase oxygenation perfusion, To improve muscle performance and motor function, To improve ability to perform ADL's, To improve performance and independence with ADL's, To improve health of tissue, To decrease soft tissue restriction, To increase flexibility/ROM and To improve tolerance to ADL's Manual Therapy Techniques to Include: Passive ROM Comment: SHOULDER For the Purpose of:: To decrease pain, To increase ROM, To improve nutrient delivery to tissue, To increase oxygenation perfusion, To improve health of tissue and To decrease soft tissue restriction Last Seen Last Seen: This patient was last seen in our office . Pertinent comments regarding their Physical therapy will appear below: Patient seen for RTC repair thus is d/c At this point I will be discontinuing this patient from physical therapy. I would be happy to see this patient again in the future if found appropriate by the physician. Thank you! Yosi Parada, PT, Cert MDT, OCS Balance/Gait/Functional tests Balance/Special Test Scores Quick DASH Score: 81.8175
== END 2022-08-20 19:00 | disposition home or self-care (01) ==
LOC: PT 11:00
PROVIDERS: PCP Family Medicine; Referring Provider Orthopaedic Surgery; Visit Provider Orthopaedic Surgery
DX: G89.18 Other acute postprocedural pain (principal); Z98.890 Other specified postprocedural states
CPT/HCPCS: 97110; 97140; 97162

== ENCOUNTER → 2023-09-14 | Outpatient (CLI) | payer MEDICAID, SELFPAY ==
[2023-09-14 11:45] LABS: AST(SGOT) 31 U/L (15-37); Alanine Aminotransfer ALT/SGPT 37 U/L (16-61); Albumin, Serum 3.9 g/dL (3.2-5.0); Alkaline Phosphatase 127 U/L (45-117); Anion Gap 6 (5-15); BUN 18 mg/dL (7-18); BUN/Creat Ratio 18.6 RATIO (10-20); Calcium,Total 9.5 mg/dL (8.5-10.1); Chloride 105 mmol/L (98-107); Cholesterol 157 mg/dL (200); Creatinine, Serum 0.97 mg/dL (0.70-1.30); EST Glomerular Filtration Rate 85 mL/min (>60); Est Glom Filt Rate - Afr Amer 103 mL/min (>60); Glucose 88 mg/dL (74-106); High Density Lipoprotein 32 mg/dL; PSA,Total - Annual Screen 0.42 ng/mL (0.00-4.00); Potassium 4.2 mmol/L (3.5-5.1); Protein, Total 7.9 g/dL (6.4-8.2); Sodium Level 139 mmol/L (136-145); Triglycerides 171 mg/dL; Very Low Density Lipoprotein 34 mg/dL (5-40)
== END | disposition home or self-care (01) ==
LOC: MFPLAB 09:17
PROVIDERS: PCP Family Medicine; Visit Provider Family Medicine
DX: Z12.5 Encounter for screening for malignant neoplasm of prostate (principal); E78.5 Hyperlipidemia, unspecified
CPT/HCPCS: 84153; 36415; 80053; 80061; G0103

== ENCOUNTER 2024-10-13 08:35 | Outpatient (CLI) | payer MEDICAID, SELFPAY ==
[2024-10-13 11:05] LABS: ALB/GLOB Ratio 1.4 RATIO (0.9-2.4); AST(SGOT) 29 U/L (<=37); Alanine Aminotransfer ALT/SGPT 28 U/L (<=46); Albumin, Serum 4.1 g/dL (3.5-5.0); Alkaline Phosphatase 113 U/L (40-129); Anion Gap 11 (5-15); BUN 17 mg/dL (4-19); BUN/Creat Ratio 20.6 RATIO (10-20); Calcium,Total 9.6 mg/dL (7.6-11.0); Carbon Dioxide 25.7 mmol/L (21.0-32.0); Chloride 104 mmol/L (98-108); Cholesterol 146 mg/dL (<=200); Creatinine, Serum 0.82 mg/dL (0.70-1.20); EST Glomerular Filtration Rate 102 (>60); Glucose 101 mg/dL (70-99); High Density Lipoprotein 34 mg/dL; Low Density Lipoprotein Calc. 87 mg/dL; Potassium 4.4 mmol/L (3.3-5.1); Protein, Total 7.2 g/dL (5.9-8.4); Sodium Level 141 mmol/L (133-145); Total Bilirubin 0.27 mg/dL (0.00-1.30); Triglycerides 126 mg/dL; Very Low Density Lipoprotein 25 mg/dL (5-40); cholesterol:hdl ratio screen 4.36
== END 2024-10-13 23:59 | disposition home or self-care (01) ==
LOC: MFPLAB 08:35
PROVIDERS: PCP Family Medicine; Referring Provider Family Medicine; Visit Provider Family Medicine
DX: E78.5 Hyperlipidemia, unspecified (principal)
CPT/HCPCS: 36415; 80053; 80061